=== PATIENT | female | born 1975 | race Caucasian/White ===

== ENCOUNTER 2016-09-12 11:23 | Emergency (ER) | payer OTHER ==
[2016-09-12 11:53] VITALS: BP 129/72
== END 2016-09-12 13:24 | disposition left against medical advice (07) ==
LOC: ED 11:23
DX: R52 Pain, unspecified (principal); Z53.21 Procedure and treatment not carried out due to patient leaving prior to being seen by health care provider

== ENCOUNTER 2016-09-24 06:44 | Emergency (ER) | payer OTHER ==
[2016-09-24 07:05] VITALS: BP 124/82
[2016-09-24] MEDS ORDERED: Amoxicillin/Clavulanate TAB* 875 MG PO ONE (07:25)
--- NOTE | 2016-09-24 07:53 | ED ---
Influenza-Like Illness - HPI Summary HPI Summary: Patient presents with two weeks of worsening sinus pain and pressure. She has been mildly congested with a cough. She was productively blowing her nose up until about 4-5 days ago but now she mainly just has pain over the left cheek. She denies fever, chills, sore throat or SPANN. - History of Current Complaint Chief Complaint: EDGeneral Time Seen by Provider: 09/24/16 07:08 Hx Obtained From: Patient Onset/Duration: Gradual Onset Severity: Severe Associated Signs & Symptoms: Nasal Congestion - Allergy/Home Medications Allergies/Adverse Reactions: Allergies Allergy/AdvReac Type Severity Reaction Status Date / Time Latex Allergy Rash Verified 09/24/16 07:06 Sulfamethoxazole AdvReac Intermediate See Comment Verified 09/24/16 07:06 w/Trimethoprim [From Bactrim] Penicillins [PCN] AdvReac Vomiting Verified 09/24/16 07:06 PMH/Surg Hx/FS Hx/Imm Hx Endocrine/Hematology History: Denies: Hx Diabetes, Hx Thyroid Disease Cardiovascular History: Denies: Hx Congestive Heart Failure, Hx Hypertension, Hx Pacemaker/ICD, Hx Peripheral Vascular Disease Respiratory History: Reports: Hx Asthma Denies: Hx Chronic Obstructive Pulmonary Disease (COPD) GI History: Denies: Hx Ulcer, Other GI Disorders History: Denies: Hx Renal Disease, Other Problems/Disorders Musculoskeletal History: Denies: Hx Arthritis, Hx Osteoporosis Comment Only: Other Musculoskeletal History - GANGLION CYST RIGHT WRIST Sensory History: Denies: Hx Cataracts, Hx Contacts or Glasses, Hx Glaucoma, Hx Hearing Aid Opthamlomology History: Denies: Hx Cataracts, Hx Contacts or Glasses, Hx Glaucoma Neurological History: Reports: Hx Headaches Denies: Hx Seizures, Hx Transient Ischemic Attacks (TIA) Psychiatric History: Denies: Hx Anxiety, Hx Depression, Hx Panic Disorder - Surgical History Surgery Procedure, Year, and Place: HYSTERECTOMY, GALLBLDDER, APPENDECTOMY Infectious Disease History: No Infectious Disease History: Denies: Hx Hepatitis, Hx Human Immunodeficiency Virus (HIV), History Other Infectious Disease, Traveled Outside the [place] in Last 30 Days - Family History Known Family History: Positive: None, Other - FHx of asthma Family History: No FHx of CVA. NO FHX of Cardaic disorders. No FHx of athritis. No FHx of RA. NO FHx of osteoporosis. no FHx of breast CA. no FHx of CA - Social History Occupation: Employed Full-time Lives: With Family Alcohol Use: Occasionally Substance Use Type: Reports: None Hx Tobacco Use: Yes Smoking Status (MU): Light Every Day Tobacco Smoker Type: Cigarettes Amount Used/How Often: 1/4-1/2 ppd Length of Time of Smoking/Using Tobacco: since age 13 Have You Smoked in the Last Year: Yes Cessation Counseling: Patient Advised to Stop Review of Systems Negative: Fever, Chills Positive: Other - left sinus pressure and pain. Negative: Sore Throat, Ear Ache Negative: Chest Pain Positive: Cough - mild. Negative: Shortness Of Breath Negative: Vomiting, Diarrhea, Nausea Negative: Myalgia Negative: Headache All Other Systems Reviewed And Are Negative: Yes Physical Exam Triage Information Reviewed: Yes Vital Signs On Initial Exam: Initial Vitals Temp Pulse Resp BP Pulse Ox 98.3 F 86 16 124/82 100 09/24/16 07:02 09/24/16 07:02 09/24/16 07:02 09/24/16 07:02 09/24/16 07:02 Vital Signs Reviewed: Yes Appearance: Positive: Well-Appearing, No Pain Distress, Well-Nourished Skin: Positive: Warm, Skin Color Reflects Adequate Perfusion, Dry, Soft Head/Face: Positive: Other - TTP left maxillary sinus; non-tender over frontal or right maxillary sinus Eyes: Positive: EOMI, LESLEY, Conjunctiva Clear ENT: Positive: Hearing grossly normal, Pharynx normal, TMs normal Neck: Positive: Supple, Nontender, No Lymphadenopathy Respiratory/Lung Sounds: Positive: Clear to Auscultation, Breath Sounds Present Cardiovascular: Positive: RRR Neurological: Positive: Sensory/Motor Intact, Alert, Oriented to Person Place, Time, NV Bundle Intact Distally Psychiatric: Positive: Affect/Mood Appropriate AVPU Assessment: Alert Diagnostics - Vital Signs Vital Signs Temp Pulse Resp BP Pulse Ox 09/24/16 07:02 98.3 F 86 16 124/82 100 - Laboratory Lab Statement: Any lab studies that have been ordered have been reviewed, and results considered in the medical decision making process. Flu Symptom Course/Dx - Diagnoses Differential Diagnosis/HQI/PQRI: Positive: Bronchitis, Influenza, Pneumonia, RSV , Upper Respiratory Infection Provider Diagnoses: Sinusitis Discharge - Discharge Plan Condition: Stable Disposition: HOME Prescriptions: Amoxicillin/Clavulanate TAB* [Augmentin TAB 875*] 875 mg PO BID #19 tab Patient Education Materials: Sinusitis (ED) Referrals: Wanda eKndall MD [Primary Care Provider] - Additional Instructions: Please take your antibiotics until they are completely gone. Continue using Ibuprofen for pain. You can use over the counter nasal washes as well. Follow- up with your primary care provider if your symptoms persist. Return to the emergency department if your symptoms worsen.
== END 2016-09-24 08:08 | disposition home or self-care (01) ==
LOC: ED 06:44
DX: J32.9 Chronic sinusitis, unspecified (principal); F17.210 Nicotine dependence, cigarettes, uncomplicated; Z88.2 Allergy status to sulfonamides; Z88.0 Allergy status to penicillin
CPT/HCPCS: 99281; A9270-GY

== ENCOUNTER 2016-09-29 10:54 | Emergency (ER) | payer OTHER ==
[2016-09-29 11:06] VITALS: BP 130/76
[2016-09-29] MEDS ORDERED: Ketorolac INJ* 60 MG/2 ML VIAL IM ONE (13:06)
--- NOTE | 2016-09-29 13:19 | RAD ---
HISTORY: Right knee pain COMPARISONS: July 30, 2015 VIEWS: 4, Frontal, lateral, axial, and oblique views of the right knee FINDINGS: BONE DENSITY: Normal. BONES: There is no displaced fracture. JOINTS: There is no arthropathy. There is no suprapatellar joint effusion or lipohemarthrosis. ALIGNMENT: There is no dislocation. SOFT TISSUES: Unremarkable. OTHER FINDINGS: None. IMPRESSION: NO ACUTE OSSEOUS INJURY. IF SYMPTOMS PERSIST, RECOMMEND REPEAT IMAGING.
--- NOTE | 2016-09-29 13:19 | RAD ---
HISTORY: Right ankle pain COMPARISONS: None VIEWS: 3, Frontal, lateral, and oblique views of the right ankle FINDINGS: BONE DENSITY: Normal. BONES: There is no displaced fracture. JOINTS: There is no arthropathy. ALIGNMENT: There is no dislocation. SOFT TISSUES: Unremarkable. OTHER FINDINGS: None. IMPRESSION: NO ACUTE OSSEOUS INJURY. IF SYMPTOMS PERSIST, RECOMMEND REPEAT IMAGING.
--- NOTE | 2016-09-29 14:02 | ED ---
Edwin Steele Billy, scribed for Brian Weber MD on 09/29/16 at 1251 . Lower Extremity - HPI Summary HPI Summary: Patient is a 40 year-old female coming to [facility] presenting with RLE pain after a simple mechanical fall on ice this morning. She states that she was walking to her car when she slipped and fell. She states that pain is worse with ambulation and palpation, but she was able to bear weight after the fall. Severity 6/10. Pain is most significant on the right lateral aspect of the right knee and ankle. She denies any other complaints at this time. - History of Current Complaint Chief Complaint: EDExtremityLower Stated Complaint: FALL RIGHT LEG INJURY Time Seen by Provider: 09/29/16 12:22 Hx Obtained From: Patient Mechanism Of Injury: Fall From A Standing Position Onset of Pain: Hours Severity Initially: Moderate Severity Currently: Moderate Pain Intensity: 6 Pain Scale Used: 0-10 Numeric Timing: Constant Location: Is Discrete @ - RLE Associated Signs And Symptoms: Positive: Negative Aggravating Factor(s): Ambulation Alleviating Factor(s): Nothing Able to Bear Weight: No - Allergies/Home Medications Allergies/Adverse Reactions: Allergies Allergy/AdvReac Type Severity Reaction Status Date / Time Latex Allergy Rash Verified 09/24/16 07:06 Sulfamethoxazole AdvReac Intermediate See Comment Verified 09/24/16 07:06 w/Trimethoprim [From Bactrim] Penicillins [PCN] AdvReac Vomiting Verified 09/24/16 07:06 PMH/Surg Hx/FS Hx/Imm Hx Endocrine/Hematology History: Denies: Hx Diabetes, Hx Thyroid Disease Cardiovascular History: Denies: Hx Congestive Heart Failure, Hx Hypertension, Hx Pacemaker/ICD, Hx Peripheral Vascular Disease Respiratory History: Reports: Hx Asthma Denies: Hx Chronic Obstructive Pulmonary Disease (COPD) GI History: Denies: Hx Ulcer, Other GI Disorders History: Denies: Hx Renal Disease, Other Problems/Disorders Musculoskeletal History: Denies: Hx Arthritis, Hx Osteoporosis Comment Only: Other Musculoskeletal History - GANGLION CYST RIGHT WRIST Sensory History: Denies: Hx Cataracts, Hx Contacts or Glasses, Hx Glaucoma Opthamlomology History: Denies: Hx Cataracts, Hx Contacts or Glasses, Hx Glaucoma Neurological History: Reports: Hx Headaches Denies: Hx Seizures, Hx Transient Ischemic Attacks (TIA) Psychiatric History: Denies: Hx Anxiety, Hx Depression, Hx Panic Disorder - Surgical History Surgery Procedure, Year, and Place: HYSTERECTOMY, GALLBLDDER, APPENDECTOMY Infectious Disease History: No Infectious Disease History: Denies: Hx Hepatitis, Hx Human Immunodeficiency Virus (HIV), History Other Infectious Disease, Traveled Outside the [place] in Last 30 Days - Family History Known Family History: Positive: Respiratory Disease - asthma Family History: No FHx of CVA. NO FHX of Cardaic disorders. No FHx of athritis. No FHx of RA. NO FHx of osteoporosis. no FHx of breast CA. no FHx of CA - Social History Alcohol Use: Occasionally Substance Use Type: Reports: None Hx Tobacco Use: Yes Smoking Status (MU): Light Every Day Tobacco Smoker Type: Cigarettes Amount Used/How Often: 1/4-1/2 ppd Length of Time of Smoking/Using Tobacco: since age 13 Have You Smoked in the Last Year: Yes Review of Systems Negative: Fever Positive: Myalgia All Other Systems Reviewed And Are Negative: Yes Physical Exam - Summary Physical Exam Summary: Vital signs: reviewed General: Patient is comfortable lying in stretcher with no signs of distress HEENT: within normal limits Lungs: CTA B/L CVS: S1 & S2 present. No murmurs appreciated. ABDOMEN: Soft, non-tender. No signs of distention. No rebound no guarding, and no masses palpated. Bowel sounds are normal. EXTREMITIES: Decrease ROM in the right knee and righ ankle. No ecchymosis, hematomas or deformity. NEURO: Alert and oriented x 3. No acute neurological deficits. Speech is normal and follows commands. SKIN: Dry and warm Triage Information Reviewed: Yes Vital Signs On Initial Exam: Initial Vitals Temp Pulse Resp BP Pulse Ox 98.1 F 85 20 130/76 98 09/29/16 11:03 09/29/16 11:03 09/29/16 11:03 09/29/16 11:03 09/29/16 11:03 Vital Signs Reviewed: Yes Diagnostics - Vital Signs Vital Signs Temp Pulse Resp BP Pulse Ox 09/29/16 11:03 98.1 F 85 20 130/76 98 - Laboratory Lab Statement: Any lab studies that have been ordered have been reviewed, and results considered in the medical decision making process. - Radiology Right Ankle Xray Interpretation: No Acute Changes Radiology Interpretation Completed By: Radiologist Right Knee X-ray Xray Interpretation: No Acute Changes Radiology Interpretation Completed By: Radiologist Lower Extremity Course/Dx - Course Assessment/Plan: Patient is a 40 year-old female coming to [facility] presenting with RLE pain after a simple mechanical fall on ice this morning. She states that she was walking to her car when she slipped and fell. She states that pain is worse with ambulation and palpation, but she was able to bear weight after the fall. Severity 6/10. Pain is most significant on the right lateral aspect of the right knee and ankle. She denies any other complaints at this time. Test results: x-rays of the right ankle and right knee show no acute osseous injury. In the ED course, patient was given Toradol IM. The patient was placed in a knee immobilizer and given crutches. The patient will be discharged home to follow up with PCP. She was instructed to return to the ED or follow up with PCP if symptoms persist to rule-out any occult fractures. The patient understands and agrees. She is hemodynamically stable, A&Ox3. - Diagnoses Differential Diagnosis/HQI/PQRI: Positive: Fracture (Closed), Sprain, Strain Provider Diagnoses: Knee contusion, Ankle contusion Discharge - Discharge Plan Condition: Stable Disposition: HOME Patient Education Materials: Knee Sprain (ED), Leg Sprain (ED), Ankle Sprain ( ED) Referrals: Wanda Kendall MD [Primary Care Provider] - The documentation as recorded by the Edwin donahue Billy accurately reflects the service I personally performed and the decisions made by , Brian Weber MD.
== END 2016-09-29 14:40 | disposition home or self-care (01) ==
LOC: ED 10:54
DX: S90.01XA Contusion of right ankle, initial encounter (principal); W00.9XXA Unspecified fall due to ice and snow, initial encounter; Y93.9 Activity, unspecified; Y92.9 Unspecified place or not applicable
CPT/HCPCS: 96372; 99281

== ENCOUNTER 2016-11-07 08:36 | Emergency (ER) | payer OTHER ==
[2016-11-07 08:47] VITALS: BP 127/89
[2016-11-07] MEDS ORDERED: HYDROcodone/ACETAMIN 5-325 MG* 1 TAB PO ONE (09:23)
--- NOTE | 2016-11-07 09:34 | UC ---
Back Pain HPI - HPI Summary HPI Summary: 40 yo female woke up yesterday with LBP has progressed no f/c no UTI symptoms pain increased with position change unable to bend no trauma pain radiates to right buttock - History of Current Complaint Chief Complaint: UCBackPain Stated Complaint: BACK PAIN Time Seen by Provider: 11/07/16 09:12 Hx Obtained From: Patient Onset/Duration: Gradual Onset, Lasting Days Timing: Constant Severity Initially: Moderate Severity Currently: Severe Pain Intensity: 8 Pain Scale Used: 0-10 Numeric Back Pain: Is Diffuse, Radiates To - righ buttock Character: Throbbing, Spasmodic Aggravating: Movement, Lifting, Bending Alleviating: Nothing Associated Signs And Symptoms: Positive: Negative Related History: Similar Episode Dx As - back strain-this is her worse episode - Allergies/Home Medications Allergies/Adverse Reactions: Allergies Allergy/AdvReac Type Severity Reaction Status Date / Time Latex Allergy Rash Verified 11/07/16 08:47 Sulfamethoxazole AdvReac Intermediate See Comment Verified 11/07/16 08:47 w/Trimethoprim [From Bactrim] Penicillins [PCN] AdvReac Vomiting Verified 11/07/16 08:47 Home Medications: Home Medications Multiple Vitamins W/ Minerals [Multivitamin Adults] 11/07/16 [History] PMH/Surg Hx/FS Hx/Imm Hx Previously Healthy: Yes Endocrine History Of: Denies: Diabetes, Thyroid Disease, Hyperthyroidism, Hypothyroidism Cardiovascular History Of: Denies: Cardiac Disorders, Hypertension, Pacemaker/ICD, Congestive Heart Failure Respiratory History Of: Reports: Asthma Denies: COPD GI/ History Of: Denies: Ulcer, Renal Disease Neurological History Of: Denies: TIA, Seizures Psychological History Of: Denies: Anxiety, Depression - Surgical History Surgical History: Yes Surgery Procedure, Year, and Place: HYSTERECTOMY, GALLBLDDER, APPENDECTOMY - Family History Known Family History: Positive: Respiratory Disease - asthma, Other - FHx of asthma Family History: No FHx of CVA. NO FHX of Cardaic disorders. No FHx of athritis. No FHx of RA. NO FHx of osteoporosis. no FHx of breast CA. no FHx of CA - Social History Alcohol Use: Rare Substance Use Type: None Smoking Status (MU): Light Every Day Tobacco Smoker Type: Cigarettes Amount Used/How Often: 1/4-1/2 ppd Length of Time of Smoking/Using Tobacco: since age 13 Have You Smoked in the Last Year: Yes Household Exposure Type: Cigarettes Review of Systems Constitutional: Negative Skin: Negative Eyes: Negative ENT: Negative Respiratory: Negative Cardiovascular: Negative Gastrointestinal: Negative Genitourinary: Negative Motor: Negative Neurovascular: Negative Musculoskeletal: Arthralgia, Myalgia Neurological: Negative Psychological: Negative All Other Systems Reviewed And Are Negative: Yes Physical Exam Triage Information Reviewed: Yes Appearance: Well-Appearing, Well-Nourished, Pain Distress Vital Signs: Initial Vital Signs Temp 99.6 F 11/07/16 08:38 Pulse 85 11/07/16 08:38 Resp 18 11/07/16 08:38 BP 127/89 11/07/16 08:38 Pulse Ox 98 11/07/16 08:38 Vital Signs Reviewed: Yes Eyes: Positive: Conjunctiva Clear ENT: Positive: Hearing grossly normal, Pharynx normal Neck: Positive: Supple, Nontender Respiratory: Positive: Lungs clear, Normal breath sounds, No respiratory distress Cardiovascular: Positive: RRR, No Murmur Abdomen Description: Positive: Nontender. Negative: CVA Tenderness (R), CVA Tenderness (L) Bowel Sounds: Positive: Present Musculoskeletal: Positive: ROM Intact, No Edema Neurological Exam: Other - DTRs equal/symmetrical, strrenght 5/5, slow wide based gait Neurological: Positive: Alert, Other: - (-) SLR Psychological Exam: Normal Skin Exam: Normal Back Pain Course/Dx - Course Course Of Treatment: elevated diastolic felt to be due to severe pain. will see her MD in follow up - Differential Dx/Diagnosis Provider Diagnoses: acute lumbar myofacial strain Discharge - Discharge Plan Condition: Stable Disposition: HOME Prescriptions: Cyclobenzaprine TAB* [Flexeril TAB*] 5 mg PO TID PRN #21 tab PRN Reason: Spasms HYDROcodone/ACETAMIN 5-325 MG* [[place] 5-325 TAB*] 1 tab PO Q4H PRN #15 tab MDD 6 PRN Reason: Pain - Severe Naproxen [Naproxen 500 MG TABS] 500 mg PO BID PRN #30 tab PRN Reason: Pain Patient Education Materials: Low Back Strain (ED) Forms: *Work Release Referrals: Wanda Kendall MD [Primary Care Provider] - 1 Week Additional Instructions: PT consult be sure to see your MD in follow up if not improving or if new symptoms develop Images Front/Back of Body, Lg ([place]): 1 - tender/musle spasm 2 - radiates here
== END 2016-11-07 09:41 | disposition home or self-care (01) ==
LOC: UCEAST 08:36
DX: S39.012A Strain of muscle, fascia and tendon of lower back, initial encounter (principal); X58.XXXA Exposure to other specified factors, initial encounter; Y93.9 Activity, unspecified; Y92.9 Unspecified place or not applicable; Z90.49 Acquired absence of other specified parts of digestive tract; F17.210 Nicotine dependence, cigarettes, uncomplicated
CPT/HCPCS: 99212; G0463

== ENCOUNTER 2016-12-27 07:01 | Emergency (ER) | payer OTHER ==
[2016-12-27 07:15] VITALS: BP 136/78
--- NOTE | 2016-12-27 07:59 | RAD ---
HISTORY: Right hand pain, right fifth digit pain COMPARISONS: April 25, 2009 VIEWS: 5, Frontal, lateral, and oblique views of the fifth digit of the right hand, with frontal and lateral views of the right hand FINDINGS: BONE DENSITY: Normal. BONES: There is no displaced fracture. JOINTS: There is no arthropathy. ALIGNMENT: There is no dislocation. SOFT TISSUES: Unremarkable. OTHER FINDINGS: None. IMPRESSION: NO ACUTE OSSEOUS INJURY. IF SYMPTOMS PERSIST, RECOMMEND REPEAT IMAGING.
--- NOTE | 2017-02-03 23:18 | UC ---
Tyler Steele Salem, scribed for Rosetta Sky MD on 12/27/16 at 0748 . Hand/Wrist HPI - HPI Summary HPI Summary: Patient is a 41 y/o female who presents to the with 6/10 right hand, 5th finger pain for the past week. She is unsure of the cause of injury, but reports that her finger will not strengthen. She states that a couple days ago her 4th and 5th finger felt numb. She denies any rashes or any joint pain anywhere else, but reports mild coughing and wheezing, but pt reports she is trying to quit smoking. She also denies any recent travels. 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 She denies any recent travels. Pt also reports she is being tested for DM. Patients medication reviewed this visit. - History Of Current Complaint Chief Complaint: UCTrauma Stated Complaint: FINGER INJURY Time Seen by Provider: 12/27/16 07:08 Hx Obtained From: Patient ?: No Onset/Duration: Gradual Onset, Lasting Days, Still Present Severity Initially: Moderate Severity Currently: Moderate Pain Intensity: 6 Pain Scale Used: 0-10 Numeric Character Of Pain: Dull Aggravating Factor(s): Extension, Adduction Alleviating: Nothing Associated Signs And Symptoms: Positive: Numbness/Tingling - Allergies/Home Medications Allergies/Adverse Reactions: Allergies Allergy/AdvReac Type Severity Reaction Status Date / Time Latex Allergy Rash Verified 12/27/16 07:07 Sulfamethoxazole AdvReac Intermediate See Comment Verified 12/27/16 07:07 w/Trimethoprim [From Bactrim] Penicillins [PCN] AdvReac Vomiting Verified 12/27/16 07:07 Home Medications: Home Medications Cephalexin 500MG #6 TAB PREPAK 1 cap TID 12/27/16 [History Confirmed 12/27/16] PMH/Surg Hx/FS Hx/Imm Hx Endocrine History Of: Denies: Diabetes, Thyroid Disease, Hyperthyroidism, Hypothyroidism Cardiovascular History Of: Denies: Cardiac Disorders, Hypertension, Pacemaker/ICD, Congestive Heart Failure Respiratory History Of: Reports: Asthma Denies: COPD GI/ History Of: Denies: Ulcer, Renal Disease Neurological History Of: Denies: TIA, Seizures Psychological History Of: Denies: Anxiety, Depression - Surgical History Surgical History: Yes Surgery Procedure, Year, and Place: HYSTERECTOMY, GALLBLDDER, APPENDECTOMY - Family History Known Family History: Positive: Hypertension, Diabetes, Respiratory Disease - asthma, Other - FHx of asthma. No FHx of lupus or RA. Family History: No FHx of CVA. NO FHX of Cardaic disorders. No FHx of athritis. No FHx of RA. NO FHx of osteoporosis. no FHx of breast CA. no FHx of CA - Social History Alcohol Use: Rare Substance Use Type: None Smoking Status (MU): Current Every Day Smoker Type: Cigarettes Amount Used/How Often: 1/2-1 PPD Length of Time of Smoking/Using Tobacco: since age 13 Have You Smoked in the Last Year: Yes Household Exposure Type: Cigarettes Review of Systems Constitutional: Negative Musculoskeletal: Other: - see HPI. All Other Systems Reviewed And Are Negative: Yes Physical Exam Triage Information Reviewed: Yes Appearance: Well-Nourished Vital Signs: Initial Vital Signs Temp 98.3 F 12/27/16 07:08 Pulse 85 12/27/16 07:08 Resp 18 12/27/16 07:08 BP 136/78 12/27/16 07:08 Pulse Ox 96 12/27/16 07:08 Vital Signs Reviewed: Yes Eye Exam: Normal ENT Exam: Normal Neck exam: Normal Respiratory Exam: Normal Respiratory: Positive: Chest non-tender, Lungs clear, Normal breath sounds, No respiratory distress, No accessory muscle use, Other: - Negative: dyspnea or tachypnea. Normal respiratory rate. Cardiovascular Exam: Normal Cardiovascular: Positive: RRR, No Murmur, Pulses Normal - Sitting up., Brisk Capillary Refill Abdominal Exam: Normal Abdomen Description: Positive: Nontender, No Organomegaly, Soft Bowel Sounds: Positive: Present Musculoskeletal: Positive: Strength Intact - Distal sensation to light touch is present x 5 digits 5th finger painful to bend, but without point tara tenderness. Some prox tender to hand, and prox 4th digit. CR < 2 sec x 5 rad ulnar pp 2+, Other: - Distal sensation to light touch is present x 5 digits 5th finger painful to bend, Neurological Exam: Normal - nonfocal, grossly intact Psychological Exam: Normal - conversing easily and appropriately Skin Exam: Normal - no visible or reported rash Diagnostics - Radiology FINGER XR Radiology Interpretation Completed By: Radiologist - IMPRESSION: NO ACUTE OSSEOUS INJURY. IF SYMPTOMS PERSIST, RECOMMEND REPEAT IMAGING. HAND XR Radiology Interpretation Completed By: Radiologist - IMPRESSION: NO ACUTE OSSEOUS INJURY. IF SYMPTOMS PERSIST, RECOMMEND REPEAT IMAGING. Re-Evaluation - Re-Evaluation First Eval Comment: Informed pt of imaging report. Hand/Wrist Course/Dx - Differential Dx/Diagnosis Provider Diagnoses: R fifth finger sprain, in the setting of possible overuse syndrome - Physician Notifications Discussed Patient Care With: Dr. Jones @ [facility]. Discussed care. Pt will follow up Dr. Bianchi today. Discharge - Discharge Plan Condition: Stable Disposition: HOME Prescriptions: predniSONE TAB* [Deltasone TAB*] 10 mg PO DAILY #10 tab Patient Education Materials: Finger Sprain (ED) Forms: *Work Release Referrals: Wanda Kendall MD [Primary Care Provider] - Conrado Bianchi MD [Medical Doctor] - Additional Instructions: Please follow up with your primary care provider per routine. Seek medical attention for worsening problems in the meantime. Follow up with Dr. Bianchi today (orthopedic) Follow up with Dr. Kendall this week if possible. Blood tests ordered, please review with your doctor. The documentation as recorded by the Tyler donahue Salem accurately reflects the service I personally performed and the decisions made by me, Rosetta Sky MD.
== END 2016-12-27 08:25 | disposition home or self-care (01) ==
LOC: UCEAST 07:01
DX: S63.616A Unspecified sprain of right little finger, initial encounter (principal); X50.9XXA Other and unspecified overexertion or strenuous movements or postures, initial encounter; Y92.9 Unspecified place or not applicable; J45.909 Unspecified asthma, uncomplicated; Z90.710 Acquired absence of both cervix and uterus; Z90.49 Acquired absence of other specified parts of digestive tract; Z88.0 Allergy status to penicillin; Z88.2 Allergy status to sulfonamides; Z91.040 Latex allergy status; F17.210 Nicotine dependence, cigarettes, uncomplicated
CPT/HCPCS: 36415; 73140; 85652; 86140; 86431; 99212; G0463

== ENCOUNTER 2017-02-06 10:57 | Emergency (ER) | payer OTHER ==
[2017-02-06 11:47] VITALS: BP 110/82
[2017-02-06] MEDS ORDERED: Albuterol/Ipratropium NEB.SOL* Albuterol 2.5 MG/Ipratropium 0.5 MG 3 ML INH ONE (12:19)
--- NOTE | 2017-02-06 12:24 | RAD ---
INDICATION: Multiple days cough, fever, shortness of breath. Congestion. History of asthma. COMPARISON: January 12, 2013 CT abdomen and February 06, 2009 chest radiograph. TECHNIQUE: Dual energy PA and routine lateral views of the chest were obtained. REPORT: Clear lungs and pleural spaces. Negative for pneumothorax. The heart, pulmonary vasculature, and mediastinal contours are unremarkable. Gallbladder fossa level surgical clips noted. Unremarkable osseous structures and soft tissue contours. IMPRESSION: No evidence for pneumonia. Negative exam.
--- NOTE | 2017-02-06 13:00 | UC ---
Shortness of Breath HPI - HPI Summary HPI Summary: TWO DAYS OF COUGH CONGESTION, CENTRAL CHEST PAIN WITH DEEP BREATHING. HISTORY OF ASTHMA, DAILY SMOKER. NO LEG PAIN. - History of Current Complaint Chief Complaint: UCRespiratory Stated Complaint: FEVER CONGESTION Time Seen by Provider: 02/06/17 12:08 Hx Obtained From: Patient, Family/Aluminum Sheet Cutter Onset/Duration: Gradual Onset, Lasting Days, Worse Since - DAILY Current Severity: Moderate Aggrevating Factors: Deep Breaths Alleviating Factors: Bronchodilators - HAS TRIED WITH NO RELIEF Associated Signs & Symptoms: Positive: Cough (Nonproductive), Wheezing, Chest Pain w/Cough, Chills. Negative: Calf Pain/Swelling, Edema - Risk Factors Pulmonary Embolism: Smoking Cardiac: Smoking Pseudomonas: Negative Tuberculosis: Negative - Allergy/Home Medications Allergies/Adverse Reactions: Allergies Allergy/AdvReac Type Severity Reaction Status Date / Time Latex Allergy Rash Verified 02/06/17 11:37 Sulfamethoxazole AdvReac Intermediate See Comment Verified 02/06/17 11:37 w/Trimethoprim [From Bactrim] Penicillins [PCN] AdvReac Vomiting Verified 02/06/17 11:37 PMH/Surg Hx/FS Hx/Imm Hx Previously Healthy: Yes - Surgical History Surgical History: Yes Surgery Procedure, Year, and Place: HYSTERECTOMY, GALLBLDDER, APPENDECTOMY - Family History Known Family History: Positive: Hypertension, Diabetes, Respiratory Disease - asthma, Other - FHx of asthma. No FHx of lupus or RA. Family History: No FHx of CVA. NO FHX of Cardaic disorders. No FHx of athritis. No FHx of RA. NO FHx of osteoporosis. no FHx of breast CA. no FHx of CA - Social History Occupation: Employed Full-time - [employer] Lives: With Family Alcohol Use: Rare Substance Use Type: None Smoking Status (MU): Current Every Day Smoker Type: Cigarettes Amount Used/How Often: 1/2-1 PPD Length of Time of Smoking/Using Tobacco: since age 13 Have You Smoked in the Last Year: Yes Household Exposure Type: Cigarettes - Immunization History Most Recent Influenza Vaccination: unknown Most Recent Tetanus Shot: up to date Review of Systems Constitutional: Fatigue Skin: Negative Eyes: Negative ENT: Negative Respiratory: Cough Cardiovascular: Negative Gastrointestinal: Negative Genitourinary: Negative Motor: Negative Neurovascular: Negative Musculoskeletal: Negative Neurological: Negative Psychological: Negative All Other Systems Reviewed And Are Negative: Yes Physical Exam Triage Information Reviewed: Yes Appearance: No Pain Distress, Well-Nourished, Ill-Appearing Vital Signs: Initial Vital Signs Temp 98.4 F 02/06/17 11:40 Pulse 86 02/06/17 11:40 Resp 20 02/06/17 11:40 BP 110/82 02/06/17 11:40 Pulse Ox 97 02/06/17 11:40 Vital Signs Reviewed: Yes Eye Exam: Normal ENT Exam: Normal ENT: Positive: Hearing grossly normal, Pharynx normal, TM bulging Dental Exam: Normal Neck exam: Normal Neck: Positive: Supple, Nontender, No Lymphadenopathy Respiratory: Positive: No respiratory distress, No accessory muscle use, Wheezing Cardiovascular Exam: Normal Cardiovascular: Positive: RRR, No Murmur, Pulses Normal Abdominal Exam: Normal Musculoskeletal Exam: Normal Musculoskeletal: Positive: Strength Intact, ROM Intact, No Edema Neurological Exam: Normal Psychological Exam: Normal Psychological: Positive: Normal Response To Family Skin Exam: Normal Shortness of Breath Dx - Course Course Of Treatment: PATINET TO ED BY PRIVATE CAR (REFUSED AMBULANCE) FOR CONTINUED EVALUATION - Differential Dx/Diagnosis Differential Diagnosis/HQI/PQRI: Asthma, Chest Wall Pain, [place], Pneumonia, Pulmonary Embolism, Other - BRONCHITIS WITH BRONCHOSPASM; SINUSITIS Provider Diagnoses: DYSPNEA - Physician Notification/Consults Discussed Patient Care With: Whit Brock Time Discussed With Above Provider: 12:35 Instructed by Provider To: MD Will See In ED Discharge - Discharge Plan Condition: Stable Disposition: TRANS HIGHER LVL OF CARE FAC
== END 2017-02-06 12:50 | disposition short-term general hospital (02) ==
LOC: UCEAST 10:57
DX: R06.00 Dyspnea, unspecified (principal); F17.210 Nicotine dependence, cigarettes, uncomplicated; Z88.0 Allergy status to penicillin; Z88.2 Allergy status to sulfonamides
CPT/HCPCS: 71020; 93005; 99212; A9270-GY; G0463

== ENCOUNTER 2017-02-06 13:09 | Emergency (ER) | payer OTHER ==
[2017-02-06 14:29] LABS: Hematocrit 44 % (35-47); Hemoglobin 14.9 g/dl (12.0-16.0); Mean Corpuscular HGB Conc 34 g/dl (31-36); Mean Corpuscular Hemoglobin 31 pg (27-31); Mean Corpuscular Volume 93 fL (80-97); Mean Platelet Volume 9 um3 (7.4-10.4); Red Blood Count 4.73 10^6/ul (4.0-5.4); Red Cell Distribution Width 13 % (10.5-15); White Blood Count 13.5 10^3/ul (3.5-10.8)
[2017-02-06 14:38] LABS: Albumin 4.1 g/dL (3.2-5.2); BUN/Creatinine Ratio 14.5 (8-20); Calcium 9.1 mg/dL (8.6-10.3); EGFR African American 121.8 (>60); EGFR Non-African American 94.7 (>60); Potassium 3.8 mmol/L (3.5-5.0); Total Protein 7.1 g/dL (6.4-8.9)
[2017-02-06] MEDS ORDERED: methylPREDNISolone 125 MG* 2 ML VIAL IV ONE (15:26)
[2017-02-06] MEDS ORDERED: Albuterol/Ipratropium NEB.SOL* Albuterol 2.5 MG/Ipratropium 0.5 MG 3 ML INH SCH (16:00)
[2017-02-06 18:21] VITALS: BP 123/71
--- NOTE | 2017-02-06 18:41 | ED ---
Corona Steele Thomas, scribed for Brian Weber MD on 02/06/17 at 1511 . Shortness of Breath - HPI Summary HPI Summary: The pt is a 41 y/o F with a Hx of asthma presenting to the ED c/o a dry cough that began two days ago. Per triage she was referred from urgent care for a URI , where she had a CXR and EKG that were negative for dz. Her pain is a 6/10, per triage. Additionally c/o a fever. The pt denies N/V, CP, and any urinary symptoms. SHx: tobacco use, rare alcohol use. - History of Current Complaint Chief Complaint: EDGeneral Time Seen by Provider: 02/06/17 14:55 Hx Obtained From: Patient Onset/Duration: Lasting Days - two days ago, Still Present Current Severity: Moderate Aggrevating Factors: Nothing Alleviating Factors: Nothing Associated Signs & Symptoms: Cough (Nonproductive), Fever - Allergy/Home Medications Allergies/Adverse Reactions: Allergies Allergy/AdvReac Type Severity Reaction Status Date / Time Bupropion [From Wellbutrin] Allergy Rash Verified 02/06/17 13:15 Latex Allergy Rash Verified 02/06/17 11:37 Sulfamethoxazole AdvReac Intermediate See Comment Verified 02/06/17 11:37 w/Trimethoprim [From Bactrim] Penicillins [PCN] AdvReac Vomiting Verified 02/06/17 11:37 PMH/Surg Hx/FS Hx/Imm Hx Previously Healthy: No Endocrine/Hematology History: Denies: Hx Diabetes, Hx Thyroid Disease Cardiovascular History: Denies: Hx Congestive Heart Failure, Hx Hypertension, Hx Pacemaker/ICD, Hx Peripheral Vascular Disease Respiratory History: Reports: Hx Asthma - as needed meds Denies: Hx Chronic Obstructive Pulmonary Disease (COPD) GI History: Denies: Hx Ulcer, Other GI Disorders History: Denies: Hx Renal Disease, Other Problems/Disorders Musculoskeletal History: Denies: Hx Arthritis, Hx Osteoporosis Comment Only: Other Musculoskeletal History - GANGLION CYST RIGHT WRIST Sensory History: Denies: Hx Cataracts, Hx Contacts or Glasses, Hx Glaucoma Opthamlomology History: Denies: Hx Cataracts, Hx Contacts or Glasses, Hx Glaucoma Neurological History: Reports: Hx Headaches Denies: Hx Seizures, Hx Transient Ischemic Attacks (TIA) Psychiatric History: Denies: Hx Anxiety, Hx Depression, Hx Panic Disorder - Surgical History Surgery Procedure, Year, and Place: HYSTERECTOMY, GALLBLDDER, APPENDECTOMY Infectious Disease History: Yes Infectious Disease History: Denies: Hx Clostridium Difficile, Hx Hepatitis, Hx Human Immunodeficiency Virus (HIV), Hx of Known/Suspected MRSA, Hx Shingles, Hx Tuberculosis, Hx Known/ Suspected VRE, Hx Known/Suspected VRSA, History Other Infectious Disease, Traveled Outside the [place] in Last 30 Days - Family History Known Family History: Positive: Hypertension, Diabetes, Respiratory Disease - asthma, Other - FHx of asthma. No FHx of lupus or RA. Family History: No FHx of CVA. NO FHX of Cardaic disorders. No FHx of athritis. No FHx of RA. NO FHx of osteoporosis. no FHx of breast CA. no FHx of CA - Social History Alcohol Use: Rare Substance Use Type: Reports: None Hx Tobacco Use: Yes Smoking Status (MU): Current Every Day Smoker Type: Cigarettes Amount Used/How Often: 1/2-1 PPD Length of Time of Smoking/Using Tobacco: since age 13 Have You Smoked in the Last Year: Yes Review of Systems Positive: Fever Eyes: Negative ENT: Negative Cardiovascular: Negative Negative: Chest Pain Positive: Cough - dry Gastrointestinal: Negative Negative: Vomiting, Nausea Genitourinary: Negative Musculoskeletal: Negative Skin: Negative Neurological: Negative Psychological: Normal All Other Systems Reviewed And Are Negative: Yes Physical Exam - Summary Physical Exam Summary: VITAL SIGNS: Reviewed. GENERAL: ~Patient is a well-developed and nourished female who is lying comfortable in the stretcher. ~Patient is not in any acute respiratory distress. HEAD AND FACE: No signs of trauma. ~No ecchymosis, hematomas or skull depressions. No sinus tenderness. EYES: PERRLA, EOMI x 2, No injected conjunctiva, no nystagmus. EARS: Hearing grossly intact. Ear canals and tympanic membranes are within normal limits. MOUTH: Oropharynx within normal limits. NECK: Supple, trachea is midline, no adenopathy, no JVD, no carotid bruit, no c- spine tenderness, neck with full ROM. CHEST: Symmetric, no tenderness at palpation LUNGS: Wheezing. Clear to auscultation bilaterally. No crackles. CVS: Regular rate and rhythm, S1 and S2 present, no murmurs or gallops appreciated. ABDOMEN: Soft, non-tender. No signs of distention. No rebound no guarding, and no masses palpated. Bowel sounds are normal. EXTREMITIES: FROM in all major joints, no edema, no cyanosis or clubbing. NEURO: Alert and oriented x 3. No acute neurological deficits. Speech is normal and follows commands. SKIN: Dry and warm Triage Information Reviewed: Yes Vital Signs On Initial Exam: Initial Vitals Temp Pulse Resp BP Pulse Ox 97.4 F 88 20 129/89 100 02/06/17 13:11 02/06/17 13:11 02/06/17 13:11 02/06/17 13:11 02/06/17 13:11 Vital Signs Reviewed: Yes - Miguel A Coma Scale Coma Scale Total: 15 Diagnostics - Vital Signs Vital Signs Temp Pulse Resp BP Pulse Ox 02/06/17 14:37 81 13 97 02/06/17 14:36 98.7 F 79 18 137/93 99 02/06/17 14:34 137/93 02/06/17 13:11 97.4 F 88 20 129/89 100 - Laboratory Lab Results: Lab Results 02/06/17 02/06/17 Range/Units 13:55 13:55 WBC 13.5 H (3.5-10.8) 10^3/ul RBC 4.73 (4.0-5.4) 10^6/ul Hgb 14.9 (12.0-16.0) g/dl Hct 44 (35-47) % MCV 93 (80-97) fL MCH 31 (27-31) pg MCHC 34 (31-36) g/dl RDW 13 (10.5-15) % Plt Count 246 (150-450) 10^3/ul MPV 9 (7.4-10.4) um3 Neut % (Auto) 66.5 (38-83) % Lymph % (Auto) 26.4 (25-47) % [place] % (Auto) 5.6 (1-9) % Eos % (Auto) 0.8 (0-6) % Baso % (Auto) 0.7 (0-2) % Absolute Neuts (auto) 8.9 H (1.5-7.7) 10^3/ul Absolute Lymphs (auto) 3.6 (1.0-4.8) 10^3/ul Absolute Monos (auto) 0.8 (0-0.8) 10^3/ul Absolute Eos (auto) 0.1 (0-0.6) 10^3/ul Absolute Basos (auto) 0.1 (0-0.2) 10^3/ul Absolute Nucleated RBC 0.01 10^3/ul Nucleated RBC % 0 Sodium 132 L (133-145) mmol/L Potassium 3.8 (3.5-5.0) mmol/L Chloride 105 (101-111) mmol/L Carbon Dioxide 24 (22-32) mmol/L Anion Gap 3 (2-11) mmol/L BUN 10 (6-24) mg/dL Creatinine 0.69 (0.51-0.95) mg/dL Est GFR ( Amer) 121.8 (>60) Est GFR (Non-Af Amer) 94.7 (>60) BUN/Creatinine Ratio 14.5 (8-20) Glucose 125 H (70-100) mg/dL Calcium 9.1 (8.6-10.3) mg/dL Total Bilirubin 1.00 (0.2-1.0) mg/dL AST 19 (13-39) U/L ALT 20 (7-52) U/L Alkaline Phosphatase 55 (34-104) U/L Total Protein 7.1 (6.4-8.9) g/dL Albumin 4.1 (3.2-5.2) g/dL Globulin 3.0 (2-4) g/dL Albumin/Globulin Ratio 1.4 (1-3) Result Diagrams: 02/06/17 13:55 02/06/17 13:55 Lab Statement: Any lab studies that have been ordered have been reviewed, and results considered in the medical decision making process. Course/Dx - Course Assessment/Plan: The pt is a 41 y/o F with a Hx of asthma presenting to the ED c /o a dry cough that began two days ago. Per triage she was referred from urgent care for a URI, where she had a CXR and EKG that were negative for dz. Her pain is a 6/10, per triage. Additionally c/o a fever. The pt denies N/V, CP, and any urinary symptoms. SHx: tobacco use, rare alcohol use. In the ED course an IV access was obtained. Patient was placed in a cardiac cath technologist. Patient was started with IV fluids. She is wheezing therefore she was started with solumedrol and Duonebs. Labs within normal limits except for WBCs of 13.5 w/o bands. Na 132, and Glucose of 125. EKG shows a NSR at w/o ST elevations. CXR impression: No acute pathology. She reports that she was send from the [facility] to do a chest CT to R/O PE. However the patient is not hypoxic and she is not tachycardic therefore I have a low suspicion for a PE. I also performed a D Dimer and it is negative. By the Wells criteria she is a low risk for a PE. After medications she is saturating at 96 to 98 at room air. She reports she is feeling better. She was given already a Rx for azithromycin for sinusitis. I believe her symptoms are secondary to her Asthma Exacerbation. I discussed all the findings and test results with the patient and patients parents. They were instructed to return to the emergency room immediately if any of the symptoms return or worsens. They understand and agree. Plan of care was discussed with the patient and patients parents they understands and agrees. All questions were answered at patient satisfaction. There were no further complaints or concerns. Lung exam before discharge: CTA B/L. Good air exchange. No wheezing or crackles heard. CVS: S1 and S2 present. No murmurs appreciated. Patient is alert and oriented x 3. Patient is hemodynamically stable. Patient will be discharged home with follow up director peoplesoft in the next 2-3 days - Diagnoses Differential Diagnosis/HQI/PQRI: Positive: Asthma, Bronchitis, CHF, Chest Wall Pain, Pneumonia Provider Diagnoses: Asthma exacerbation, Acute sinusitis Discharge - Discharge Plan Condition: Stable Disposition: HOME Prescriptions: predniSONE TAB* [Deltasone TAB*] 40 mg PO DAILY #8 tab Patient Education Materials: Asthma (ED), Sinusitis (ED), Prednisone (By mouth) Forms: *Work Release Referrals: Wanda Kendall MD [Primary Care Provider] - 3 Days The documentation as recorded by the Corona donahue Thomas accurately reflects the service I personally performed and the decisions made by me, Brian Weber MD.
== END 2017-02-06 18:23 | disposition home or self-care (01) ==
LOC: ED 13:09
DX: J45.901 Unspecified asthma with (acute) exacerbation (principal); J01.90 Acute sinusitis, unspecified; R05 Cough; R50.9 Fever, unspecified
CPT/HCPCS: 36415; 80053; 85025; 85379; 94640; 94760; 96374; 99283; A9270-GY; J2930

== ENCOUNTER 2017-07-04 00:14 | Emergency (ER) | payer MEDICAID ==
[2017-07-04 00:18] VITALS: BP 127/83
[2017-07-04] MEDS ORDERED: Azithromycin TAB* 250 MG PO ONE (01:01)
[2017-07-04] MEDS ORDERED: Albuterol HFA INHALER* 8 gm MDI INH ONE (01:02)
--- NOTE | 2017-07-04 01:48 | ED ---
Ajay Steele Nikita, scribed for Raul Rivera MD on 07/04/17 at 0027 . Complex/Multi-Sys Presentation - HPI Summary HPI Summary: This patient is a 41 year old F presenting to ED with a chief complaint of multiple symptoms since 4 days ago. The patient rates the pain 6/10 in severity. Symptoms aggravated by nothing. Symptoms alleviated by nothing (pt took Robitussin with no relief). Patient reports wheezing, sinus congestion, rhinorrhea, sore throat, non-productive cough (intermittent), SPANN, and sore/ scratchy throat. Patient denies ear pain, muscle aches, and appetite changes. Daughter has a sinus infection. - History Of Current Complaint Chief Complaint: EDUpperRespComplaint Time Seen by Provider: 07/04/17 00:24 Hx Obtained From: Patient Onset/Duration: Sudden Onset, Lasting Days, Still Present Timing: Constant, Intermittent, Lasting:, Days Severity Currently: Moderate Severity Initially: Moderate Aggravating Factor(s): nothing Alleviating Factor(s): nothing (pt took Robitussin with no relief) Associated Signs And Symptoms: Positive: Other - Patient reports wheezing, sinus congestion, rhinorrhea, sore throat, non-productive cough (intermittent), SPANN, and sore/scratchy throat. Patient denies ear pain, muscle aches, and appetite changes. - Allergies/Home Medications Allergies/Adverse Reactions: Allergies Allergy/AdvReac Type Severity Reaction Status Date / Time Bupropion [From Wellbutrin] Allergy Rash Verified 07/04/17 00:19 Latex Allergy Rash Verified 07/04/17 00:19 Sulfamethoxazole AdvReac Intermediate See Comment Verified 07/04/17 00:19 w/Trimethoprim [From Bactrim] Penicillins [PCN] AdvReac Vomiting Verified 07/04/17 00:19 PMH/Surg Hx/FS Hx/Imm Hx Endocrine/Hematology History: Denies: Hx Diabetes, Hx Thyroid Disease Cardiovascular History: Denies: Hx Congestive Heart Failure, Hx Hypertension, Hx Pacemaker/ICD, Hx Peripheral Vascular Disease Respiratory History: Reports: Hx Asthma - as needed meds Denies: Hx Chronic Obstructive Pulmonary Disease (COPD) GI History: Denies: Hx Ulcer, Other GI Disorders History: Denies: Hx Renal Disease, Other Problems/Disorders Musculoskeletal History: Denies: Hx Arthritis, Hx Osteoporosis Comment Only: Other Musculoskeletal History - GANGLION CYST RIGHT WRIST Sensory History: Denies: Hx Cataracts, Hx Contacts or Glasses, Hx Glaucoma Opthamlomology History: Denies: Hx Cataracts, Hx Contacts or Glasses, Hx Glaucoma Neurological History: Reports: Hx Headaches Denies: Hx Seizures, Hx Transient Ischemic Attacks (TIA) Psychiatric History: Denies: Hx Anxiety, Hx Depression, Hx Panic Disorder - Surgical History Surgery Procedure, Year, and Place: HYSTERECTOMY, GALLBLDDER, APPENDECTOMY Infectious Disease History: No Infectious Disease History: Denies: Hx Clostridium Difficile, Hx Hepatitis, Hx Human Immunodeficiency Virus (HIV), Hx of Known/Suspected MRSA, Hx Shingles, Hx Tuberculosis, Hx Known/ Suspected VRE, Hx Known/Suspected VRSA, History Other Infectious Disease, Traveled Outside the [place] in Last 30 Days - Family History Known Family History: Positive: Hypertension, Diabetes, Respiratory Disease - asthma, Other - FHx of asthma. No FHx of lupus or RA. Family History: No FHx of CVA. NO FHX of Cardaic disorders. No FHx of athritis. No FHx of RA. NO FHx of osteoporosis. no FHx of breast CA. no FHx of CA - Social History Alcohol Use: Rare Substance Use Type: Reports: None Hx Tobacco Use: Yes Smoking Status (MU): Current Every Day Smoker Type: Cigarettes Amount Used/How Often: 1/2-1 PPD Length of Time of Smoking/Using Tobacco: since age 13 Have You Smoked in the Last Year: Yes Review of Systems Positive: Sore Throat - scratchy, Other - sinus congestion, rhinorrhea. Negative: Ear Ache Positive: Cough - intermittent, non-productive, Other - wheezing Positive: Other - denies appetite changes Positive: Other - denies muscle aches Positive: Headache All Other Systems Reviewed And Are Negative: Yes Physical Exam Triage Information Reviewed: Yes Vital Signs On Initial Exam: Initial Vitals Temp Pulse Resp BP Pulse Ox 97.1 F 88 18 127/83 98 07/04/17 00:16 07/04/17 00:16 07/04/17 00:16 07/04/17 00:16 07/04/17 00:16 Vital Signs Reviewed: Yes Appearance: Positive: Well-Appearing, No Pain Distress Skin: Positive: Warm, Skin Color Reflects Adequate Perfusion, Dry Head/Face: Positive: Normal Head/Face Inspection Eyes: Positive: EOMI, LESLEY ENT: Positive: Normal ENT inspection, TMs normal, Other - positive rhinorrhea Neck: Positive: Supple, Nontender Respiratory/Lung Sounds: Positive: Breath Sounds Present, Other - no respiratory distress, transmitted upper respiratory sounds in lungs Cardiovascular: Positive: RRR Abdomen Description: Positive: Nontender, Soft Bowel Sounds: Positive: Present Musculoskeletal: Positive: Normal, Strength/ROM Intact Neurological: Positive: Normal, Sensory/Motor Intact, Alert, Oriented to Person Place, Time Psychiatric: Positive: Affect/Mood Appropriate Diagnostics - Vital Signs Vital Signs Temp Pulse Resp BP Pulse Ox 07/04/17 00:16 97.1 F 88 18 127/83 98 - Laboratory Lab Statement: Any lab studies that have been ordered have been reviewed, and results considered in the medical decision making process. Complex Multi-Symp Course/Dx Assessment/Plan: This patient is a 41 year old F presenting to ED with a chief complaint of multiple symptoms since 4 days ago. The patient rates the pain 6/ 10 in severity. Symptoms aggravated by nothing. Symptoms alleviated by nothing ( pt took Robitussin with no relief). Patient reports wheezing, sinus congestion, sore throat, non-productive cough (intermittent), SPANN, and sore/scratchy throat. Patient denies ear pain, muscle aches, and appetite changes. BP noted and advised to follow up with PCP. Medications reviewed. Allergies noted. Pt will be discharged. Pt is agreeable with this plan. - Diagnoses Provider Diagnoses: Bronchitis with bronchospasm Discharge - Discharge Plan Condition: Stable Disposition: HOME Prescriptions: Azithromycin TAB* [Zithromax TAB (Z-RAYSA) 250 mg #6 tabs] 250 mg PO DAILY #4 tab Patient Education Materials: Acute Bronchitis (ED), Bronchospasm (ED) Forms: *Work Release Referrals: Wanda Kendall MD [Primary Care Provider] - Additional Instructions: FOLLOW UP WITH YOUR DOCTOR. RETURN TO THE EMERGENCY DEPARTMENT FOR ANY WORSENING OF YOUR CONDITION OR QUESTIONS OR CONCERNS. The documentation as recorded by the Ajay donahue Nikita accurately reflects the service I personally performed and the decisions made by me, Raul Rivera MD.
== END 2017-07-04 01:12 | disposition home or self-care (01) ==
LOC: ED 00:14
DX: J40 Bronchitis, not specified as acute or chronic (principal); R51 Headache
CPT/HCPCS: 99282; A9270-GY

== ENCOUNTER 2017-09-16 12:56 | Emergency (ER) | payer MEDICAID, OTHER ==
[2017-09-16 13:15] VITALS: BP 119/80
--- NOTE | 2017-09-16 14:03 | RAD ---
HISTORY: Left foot and ankle pain and swelling COMPARISONS: None VIEWS: 6, Frontal, lateral, and oblique views of the left foot and ankle FINDINGS: BONE DENSITY: Normal. BONES: There is no displaced fracture. JOINTS: There is no arthropathy. ALIGNMENT: There is no dislocation. SOFT TISSUES: Unremarkable. OTHER FINDINGS: None. IMPRESSION: NO ACUTE OSSEOUS INJURY OF THE LEFT FOOT AND ANKLE. IF SYMPTOMS PERSIST, RECOMMEND REPEAT IMAGING.
--- NOTE | 2017-09-16 15:02 | UC ---
Yoon Steele Nilda, scribed for Julita Chauhan DO on 09/16/17 at 1446 . Lower Extremity/Ankle HPI - HPI Summary HPI Summary: This patient is a 41 year old F presenting to [facility] accompanied by daughter with a chief complaint of pain in left foot (ankle to in-step) since yesterday. Pt states she stepped out of her car yesterday and felt the pain. The patient rates the stabbing pain 7/10 in severity with movement. The throbbing pain is rated 4/10 when seated. Symptoms aggravated by weight bearing and movement, but alleviated by rest. Patient reports she can ambulate but denies known injury. - History of Current Complaint Chief Complaint: UCLowerExtremity Stated Complaint: FOOT INJURY Time Seen by Provider: 09/16/17 13:29 Hx Obtained From: Patient Onset/Duration: Sudden Onset, Lasting Days, Still Present Severity Currently: Severe Pain Intensity: 7 Pain Scale Used: 0-10 Numeric Aggravating Factor(s): Other - weight bearing and movement Alleviating Factor(s): Rest Able to Bear Weight: No - Allergies/Home Medications Allergies/Adverse Reactions: Allergies Allergy/AdvReac Type Severity Reaction Status Date / Time Bupropion [From Wellbutrin] Allergy Rash Verified 09/16/17 13:15 Latex Allergy Rash Verified 09/16/17 13:15 Sulfamethoxazole AdvReac Intermediate See Comment Verified 09/16/17 13:15 w/Trimethoprim [From Bactrim] Penicillins [PCN] AdvReac Vomiting Verified 09/16/17 13:15 Home Medications: Home Medications Acetaminophen [APAP] 1,000 mg PO 09/16/17 [History] Ibuprofen [Advil] 400 mg PO 09/16/17 [History] PMH/Surg Hx/FS Hx/Imm Hx Respiratory History: Asthma - Surgical History Surgical History: Yes Surgery Procedure, Year, and Place: HYSTERECTOMY, GALLBLDDER, APPENDECTOMY - Family History Known Family History: Positive: Hypertension, Diabetes, Respiratory Disease - asthma, Other - FHx of asthma. No FHx of lupus or RA. Family History: No FHx of CVA. NO FHX of Cardaic disorders. No FHx of athritis. No FHx of RA. NO FHx of osteoporosis. no FHx of breast CA. no FHx of CA - Social History Alcohol Use: Rare Substance Use Type: None Smoking Status (MU): Heavy Every Day Tobacco Smoker Type: Cigarettes Amount Used/How Often: 1/2-1 PPD Length of Time of Smoking/Using Tobacco: since age 13 Have You Smoked in the Last Year: Yes Household Exposure Type: Cigarettes - Immunization History Most Recent Influenza Vaccination: unknown Most Recent Tetanus Shot: up to date Review of Systems Respiratory: Negative Musculoskeletal: Other: - left foot pain with ambulation; negative known injury All Other Systems Reviewed And Are Negative: Yes Physical Exam Triage Information Reviewed: Yes Vital Signs: Initial Vital Signs Temp 97.6 F 09/16/17 13:11 Pulse 92 09/16/17 13:11 Resp 18 09/16/17 13:11 BP 119/80 09/16/17 13:11 Pulse Ox 98 09/16/17 13:11 Vital Signs Reviewed: Yes - Additional Comments Appearance: Well-Appearing, No Pain Distress, Well-Nourished Eyes: conjunctiva clear, no discharge ENT: Hearing grossly normal, no muffled/hoarse voice. Neck: Normal, Supple Respiratory/Lung Sounds: Lungs clear, Normal breath sounds, No respiratory distress, No accessory muscle use Cardiovascular: RRR, No murmur Abdomen: Nontender, Soft, no guarding, not distended Bowel Sounds: Present Musculoskeletal: tenderness over medial lateral malleolus, 1st metatarsal, tailor dome, distal tibia and fibia Neurological: Alert, muscle tone normal Psychiatric:Normal, age appropriate behavior Skin: Normal, Warm, Dry, Normal color Diagnostics - Radiology Foot XR Radiology Interpretation Completed By: Radiologist - Foot XR, per radiologist, no acute osseous injury of the left foot and ankle. If symptoms persist, recommend repeat imaging. Dr. Chauhan has reviewed this report. Ankle XR Radiology Interpretation Completed By: Radiologist - Ankle XR, per radiologist, no acute osseous injury of the left foot and ankle. If symptoms persist, recommend repeat imaging. Dr. Chauhan has reviewed this report. Lower Extremity Course/Dx - Course Course Of Treatment: This patient is a 41 year old F presenting to [facility] accompanied by daughter with a chief complaint of pain in left foot (ankle to in -step) since yesterday. Pt states she stepped out of her car yesterday and felt the pain. The patient rates the stabbing pain 7/10 in severity with movement. The throbbing pain is rated 4/10 when seated. Symptoms aggravated by weight bearing and movement, but alleviated by rest. Patient reports she can ambulate but denies known injury. Foot XR, per radiologist, no acute osseous injury of the left foot and ankle. If symptoms persist, recommend repeat imaging. Ankle XR, per radiologist, no acute osseous injury of the left foot and ankle. If symptoms persist, recommend repeat imaging. Dr. Chauhan has reviewed these reports. Patient will be discharged and follow up from PCP. The patient is agreeable with this plan. Medications reviewed. Allergies reviewed. Pt is Dx with foot sprain. - Differential Dx/Diagnosis Provider Diagnoses: foot sprain Discharge - Discharge Plan Condition: Stable Disposition: HOME Patient Education Materials: Foot Sprain (ED), Flatfoot (DC) Forms: *Work Release Referrals: Wanda Kendall MD [Primary Care Provider] - Cecile Velazco DPM [Doctor of Podiatric Medicine] - (follow up in 3-5 days ) The documentation as recorded by the Yoon donahue Nilda accurately reflects the service I personally performed and the decisions made by Tien wesley Michelle A, DO.
== END 2017-09-16 15:08 | disposition home or self-care (01) ==
LOC: UCEAST 12:56
DX: S93.602A Unspecified sprain of left foot, initial encounter (principal); X58.XXXA Exposure to other specified factors, initial encounter; Y92.9 Unspecified place or not applicable; Z88.0 Allergy status to penicillin; Z88.3 Allergy status to other anti-infective agents; Z91.040 Latex allergy status; J45.909 Unspecified asthma, uncomplicated; Z90.710 Acquired absence of both cervix and uterus; Z90.49 Acquired absence of other specified parts of digestive tract; F17.210 Nicotine dependence, cigarettes, uncomplicated
CPT/HCPCS: 99213; G0463

== ENCOUNTER → 2017-10-02 08:32 | Emergency (ER) | payer OTHER ==
[~2017-10-02 08:32] MED LIST: Morphine INJ* 4 MG/ML 1 ML CARPUJECT IV ONE; Ondansetron INJ* 2 MG/ML VIAL IV ONE
--- NOTE | 2017-10-02 09:35 | RAD ---
HISTORY: Left ankle and foot pain, subacute trauma COMPARISONS: September 16, 2017 VIEWS: 6, Frontal, lateral, and oblique views of the left ankle and foot FINDINGS: BONE DENSITY: Normal. BONES: There is no displaced fracture. JOINTS: There is no arthropathy. ALIGNMENT: There is no dislocation. SOFT TISSUES: Unremarkable. OTHER FINDINGS: None. IMPRESSION: NO ACUTE OSSEOUS INJURY TO THE LEFT ANKLE OR FOOT. IF SYMPTOMS PERSIST, RECOMMEND REPEAT IMAGING.
[2017-10-02 09:54] VITALS: BP 121/83
--- NOTE | 2017-10-02 18:58 | ED ---
Jovany Steele Angela, scribed for Brian Weber MD on 10/02/17 at 0858 . Lower Extremity - HPI Summary HPI Summary: This pt is a 41 y/o female presenting to [facility] c/o left foot pain x3 weeks. Pt reports she injured her foot 3 weeks ago after slipping on ice and falling. Denies head strike or LOC. Pt notes her foots is painful to touch. She is able to bear weight with this left foot. PSHx: hysterectomy, appendectomy, cholecystectomy. Pt is a current smoker ( smokes 1 pack every 3 days). - History of Current Complaint Stated Complaint: LT FOOT PAIN Time Seen by Provider: 10/02/17 08:33 Hx Obtained From: Patient Mechanism Of Injury: Fall From A Standing Position Onset of Pain: Immediate Onset/Duration: Still Present Severity Currently: Severe Pain Intensity: 8 Pain Scale Used: 0-10 Numeric Timing: Constant Location: Is Discrete @ - left foot Associated Signs And Symptoms: Positive: Negative Aggravating Factor(s): Other - touch, palpation Alleviating Factor(s): Nothing Able to Bear Weight: Yes - Allergies/Home Medications Allergies/Adverse Reactions: Allergies Allergy/AdvReac Type Severity Reaction Status Date / Time MS Bupropion Allergy Rash Verified 09/16/17 13:15 [From Wellbutrin] MS Latex [Latex] Allergy Rash Verified 09/16/17 13:15 MS Sulfamethoxazole AdvReac Intermediate See Comment Verified 09/16/17 13:15 w/Trimethoprim [From Bactrim] MS Penicillins [PCN] AdvReac Vomiting Verified 09/16/17 13:15 PMH/Surg Hx/FS Hx/Imm Hx Endocrine/Hematology History: Denies: Hx Diabetes, Hx Thyroid Disease Cardiovascular History: Denies: Hx Congestive Heart Failure, Hx Hypertension, Hx Pacemaker/ICD, Hx Peripheral Vascular Disease Respiratory History: Reports: Hx Asthma - as needed meds Denies: Hx Chronic Obstructive Pulmonary Disease (COPD) GI History: Denies: Hx Ulcer, Other GI Disorders History: Denies: Hx Renal Disease, Other Problems/Disorders Musculoskeletal History: Denies: Hx Arthritis, Hx Osteoporosis Comment Only: Other Musculoskeletal History - GANGLION CYST RIGHT WRIST Sensory History: Denies: Hx Cataracts, Hx Contacts or Glasses, Hx Glaucoma Opthamlomology History: Denies: Hx Cataracts, Hx Contacts or Glasses, Hx Glaucoma Neurological History: Reports: Hx Headaches Denies: Hx Seizures, Hx Transient Ischemic Attacks (TIA) Psychiatric History: Denies: Hx Anxiety, Hx Depression, Hx Panic Disorder - Surgical History Surgery Procedure, Year, and Place: HYSTERECTOMY, GALLBLDDER, APPENDECTOMY Infectious Disease History: No Infectious Disease History: Denies: Hx Clostridium Difficile, Hx Hepatitis, Hx Human Immunodeficiency Virus (HIV), Hx of Known/Suspected MRSA, Hx Shingles, Hx Tuberculosis, Hx Known/ Suspected VRE, Hx Known/Suspected VRSA, History Other Infectious Disease, Traveled Outside the [place] in Last 30 Days - Family History Known Family History: Positive: Hypertension, Diabetes, Respiratory Disease - asthma, Other - FHx of asthma. No FHx of lupus or RA. Family History: No FHx of CVA. NO FHX of Cardaic disorders. No FHx of athritis. No FHx of RA. NO FHx of osteoporosis. no FHx of breast CA. no FHx of CA - Social History Alcohol Use: Rare Substance Use Type: Reports: None Hx Tobacco Use: Yes Smoking Status (MU): Heavy Every Day Tobacco Smoker Type: Cigarettes Amount Used/How Often: 1/2-1 PPD Length of Time of Smoking/Using Tobacco: since age 13 Have You Smoked in the Last Year: Yes Review of Systems Negative: Fever, Chills Eyes: Negative ENT: Negative Cardiovascular: Negative Respiratory: Negative Musculoskeletal: Other - left foot pain Neurological: Negative All Other Systems Reviewed And Are Negative: Yes Physical Exam - Summary Physical Exam Summary: VITAL SIGNS: Reviewed. GENERAL: Patient is a well-developed and nourished female who is lying comfortable in the stretcher. Patient is not in any acute respiratory distress. HEAD AND FACE: No signs of trauma. No ecchymosis, hematomas or skull depressions. No sinus tenderness. EYES: PERRLA, EOMI x 2, No injected conjunctiva, no nystagmus. EARS: Hearing grossly intact. Ear canals and tympanic membranes are within normal limits. MOUTH: Oropharynx within normal limits. NECK: Supple, trachea is midline, no adenopathy, no JVD, no carotid bruit, no c- spine tenderness, neck with full ROM. CHEST: Symmetric, no tenderness at palpation LUNGS: Clear to auscultation bilaterally. No wheezing or crackles. CVS: Regular rate and rhythm, S1 and S2 present, no murmurs or gallops appreciated. ABDOMEN: Soft, non-tender. No signs of distention. No rebound no guarding, and no masses palpated. Bowel sounds are normal. EXTREMITIES: FROM in all major joints, no edema, no cyanosis or clubbing. LLE: Full ROM of left foot. No ecchymosis. No hematoma. No erythema. NEURO: Alert and oriented x 3. No acute neurological deficits. Speech is normal and follows commands. SKIN: Dry and warm Triage Information Reviewed: Yes Vital Signs On Initial Exam: Initial Vitals Temp Pulse Resp BP Pulse Ox 97.3 F 91 16 134/87 98 10/02/17 08:34 10/02/17 08:34 10/02/17 08:34 10/02/17 08:34 10/02/17 08:34 Vital Signs Reviewed: Yes Diagnostics - Vital Signs Vital Signs Temp Pulse Resp BP Pulse Ox 10/02/17 08:34 97.3 F 91 16 134/87 98 - Laboratory Lab Statement: Any lab studies that have been ordered have been reviewed, and results considered in the medical decision making process. - Radiology Left ankle XR Xray Interpretation: No Acute Changes - IMPRESSION: No acute osseous injury to the left ankle or foot. If symptoms persist, recommend repeat imaging. Dr. Weber has reviewed this radiology report. Radiology Interpretation Completed By: Radiologist Left foot XR Xray Interpretation: No Acute Changes - IMPRESSION: No acute osseous injury to the left ankle or foot. If symptoms persist, recommend repeat imaging. Dr. Weber has reviewed this radiology report. Radiology Interpretation Completed By: Radiologist Lower Extremity Course/Dx - Course Assessment/Plan: This pt is a 41 y/o female presenting to [facility] c/o left foot pain x3 weeks. Pt reports she injured her foot 3 weeks ago after slipping on ice and falling. Denies head strike or LOC. Pt notes her foots is painful to touch. She is able to bear weight with this left foot. PSHx: hysterectomy, appendectomy, cholecystectomy. Pt is a current smoker (smokes 1 pack every 3 days). Left foot and left ankle XR show no acute osseous injury to the left ankle or foot. If symptoms persist, recommend repeat imaging. Since there is no significant abnormality, the pt will be discharged home with follow up from her PCP. Pt ambulated out of the ER. Pt is hemodynamically stable, alert and oriented x3. - Diagnoses Differential Diagnosis/HQI/PQRI: Positive: Bursitis, Contusion, Fracture (Closed ), Sprain, Strain Provider Diagnoses: Ankle pain Discharge - Discharge Plan Condition: Stable Disposition: HOME Patient Education Materials: Arthralgia (ED) Forms: *Work Release Referrals: Wanda Kendall MD [Primary Care Provider] - 3 Days Additional Instructions: Please follow up with your primary care provider. RETURN TO THE ED FOR ANY WORSENING SYMPTOMS. The documentation as recorded by the Jovany donahue Angela accurately reflects the service I personally performed and the decisions made by , Brian Weber MD.
== END | disposition home or self-care (01) ==
LOC: ED 08:32
DX: M25.572 Pain in left ankle and joints of left foot (principal); F17.210 Nicotine dependence, cigarettes, uncomplicated; W00.0XXA Fall on same level due to ice and snow, initial encounter; Y92.9 Unspecified place or not applicable
CPT/HCPCS: 96374; 96375; 99282

== ENCOUNTER 2017-12-17 14:26 | Emergency (ER) | payer OTHER ==
[2017-12-17 14:43] VITALS: BP 122/82
--- NOTE | 2017-12-17 15:00 | UC ---
Throat Pain/Nasal Dominguez HPI - HPI Summary HPI Summary: Pt presents with dry cough, sinus pain/pressure/congestion, and post nasal drip for the last 6 days. She has not been taking anything OTC. Denies fever, chills , SOB, chest pain, abdominal pain, n/v/d/c. - History of Current Complaint Chief Complaint: UCGeneralIllness Stated Complaint: COUGH, SORE THROAT WITH SINUS AND CHEST CONGESTION Time Seen by Provider: 12/17/17 15:00 Hx Obtained From: Patient Hx Last Menstrual Period: NA Onset/Duration: Gradual Onset Severity: Moderate Pain Intensity: 6 Pain Scale Used: 0-10 Numeric Cough: Nonproductive - Allergies/Home Medications Allergies/Adverse Reactions: Allergies Allergy/AdvReac Type Severity Reaction Status Date / Time Penicillins Allergy Intermediate vomitting Verified 12/17/17 14:45 bupropion Allergy Rash Verified 12/17/17 14:45 latex Allergy Rash Verified 12/17/17 14:45 Sulfa (Sulfonamide Allergy Fever Verified 12/17/17 14:45 Antibiotics) PMH/Surg Hx/FS Hx/Imm Hx - Additional Past Medical History Additional PMH: None Previously Healthy: Yes - Surgical History Surgical History: Yes Surgery Procedure, Year, and Place: HYSTERECTOMY, GALLBLDDER, APPENDECTOMY - Family History Known Family History: Positive: Hypertension, Diabetes, Respiratory Disease - asthma, Other - FHx of asthma. No FHx of lupus or RA. Family History: No FHx of CVA. NO FHX of Cardaic disorders. No FHx of athritis. No FHx of RA. NO FHx of osteoporosis. no FHx of breast CA. no FHx of CA - Social History Occupation: Employed Full-time Lives: With Family Alcohol Use: Occasionally Substance Use Type: None Smoking Status (MU): Light Every Day Tobacco Smoker Type: Cigarettes Amount Used/How Often: 1/2-1 PPD Length of Time of Smoking/Using Tobacco: since age 13 Have You Smoked in the Last Year: Yes Household Exposure Type: Cigarettes - Immunization History Most Recent Influenza Vaccination: unknown Most Recent Tetanus Shot: up to date Review of Systems Constitutional: Negative Skin: Negative Eyes: Negative ENT: Sore Throat, Nasal Discharge, Sinus Congestion, Sinus Pain/Tenderness Respiratory: Cough Cardiovascular: Negative Gastrointestinal: Negative Neurovascular: Negative Neurological: Negative Psychological: Negative All Other Systems Reviewed And Are Negative: Yes Physical Exam - Summary Physical Exam Summary: GENERAL: NAD. WDWN HEENT: NC/AT. Conjunctiva clear without inflammation or discharge. TMs intact , no bulging, erythema, or edema. Nasal mucosa mildly swollen and erythematous with yellow/clear discharge. TTP maxillary and frontal sinus. Posterior oropharynx without exudates, erythema, or tonsillar enlargement. Uvula midline. NECK: Supple without lymphadenopathy CHEST: CTAB. No r/r/w. No accessory muscle use. Breathing comfortably and in no distress. CV: RRR. Without m/r/g. Pulses intact. SKIN: No rashes, sores, lesions, or open wounds. NEURO: Alert. CN II-XII grossly intact. PSYCH: Age appropriate behavior. Triage Information Reviewed: Yes Vital Signs: Initial Vital Signs Temp 97.9 F 12/17/17 14:39 Pulse 93 12/17/17 14:39 Resp 18 12/17/17 14:39 BP 122/82 12/17/17 14:39 Pulse Ox 100 12/17/17 14:39 Throat Pain/Nasal Course/Dx - Course Course Of Treatment: POC strep negative. Sinusitis. Bronchitis. - Differential Dx/Diagnosis Provider Diagnoses: Sinusitis. Bronchitis Discharge - Sign-Out/Discharge Documenting (check all that apply): Discharge/Admit/Transfer - Discharge Plan Condition: Stable Disposition: HOME Prescriptions: Azithromycin TAB* [Zithromax TAB (Z-RAYSA) 250 mg #6 tabs] 2 tab PO .TODAY, THEN 1 DAILY #1 raysa Benzonatate CAP* [Tessalon 100 MG CAP*] 100 mg PO TID PRN #15 cap PRN Reason: Cough Codeine Phosphate/Guaifenesin [Guaifen-Codeine 100-10 mg/5 ml] 5 ml PO BEDTIME PRN #30 ml MDD 5mL PRN Reason: Cough Patient Education Materials: Sinusitis (ED), Acute Bronchitis (ED) Referrals: Wanda Kendall MD [Primary Care Provider] - Additional Instructions: If you develop a fever, shortness of breath, chest pain, new or worsening symptoms - please call your PCP or go to the ED. - Billing Disposition and Condition Condition: STABLE Disposition: HOME
== END 2017-12-17 15:29 | disposition home or self-care (01) ==
LOC: UCEAST 14:26
DX: J32.9 Chronic sinusitis, unspecified (principal); J40 Bronchitis, not specified as acute or chronic; Z88.0 Allergy status to penicillin; Z88.2 Allergy status to sulfonamides; Z91.040 Latex allergy status; F17.210 Nicotine dependence, cigarettes, uncomplicated
CPT/HCPCS: 87651; 99212; G0463

== ENCOUNTER 2018-03-04 16:47 | Emergency (ER) | payer OTHER ==
[2018-03-04] MEDS ORDERED: Diazepam TAB(*) 5 MG PO ONE (17:20)
--- NOTE | 2018-03-04 17:24 | ED ---
Back Pain - HPI Summary HPI Summary: Complains of low right-sided back pain upon waking up yesterday. Back pain described as constant, worse with walking. Denies trauma, incontinence, urinary retention, radiation of pain down bilateral legs, history of same pain. Denies fever, cough, sore throat, CP, SOB, N/V/D, abdominal pain, change in urine or BM. Medical history is none. History of hysterectomy. - History of Current Complaint Chief Complaint: EDBackInjuryPain Stated Complaint: BACK PAIN Time Seen by Provider: 03/04/18 17:09 Hx Obtained From: Patient, Family/Test Center Manager Hx Last Menstrual Period: NA Onset/Duration: Sudden Onset Onset/Duration: Started Days Ago Timing: Constant Back Pain Location: Is Discrete @ Severity Initially: Severe Severity Currently: Severe Pain Intensity: 10 Pain Scale Used: 0-10 Numeric Character: Sharp Aggravating Symptom(s): Movement, Walking Alleviating Symptom(s): Rest, Position Associated Signs And Symptoms: Positive: Negative - Allergies/Home Medications Allergies/Adverse Reactions: Allergies Allergy/AdvReac Type Severity Reaction Status Date / Time Penicillins Allergy Intermediate vomitting Verified 03/04/18 16:50 bupropion Allergy Rash Verified 03/04/18 16:50 latex Allergy Rash Verified 03/04/18 16:50 Sulfa (Sulfonamide Allergy Fever Verified 03/04/18 16:50 Antibiotics) PMH/Surg Hx/FS Hx/Imm Hx Endocrine/Hematology History: Denies: Hx Diabetes, Hx Thyroid Disease Cardiovascular History: Denies: Hx Congestive Heart Failure, Hx Hypertension, Hx Pacemaker/ICD, Hx Peripheral Vascular Disease Respiratory History: Reports: Hx Asthma - as needed meds Denies: Hx Chronic Obstructive Pulmonary Disease (COPD) GI History: Denies: Hx Ulcer, Other GI Disorders History: Denies: Hx Renal Disease, Other Problems/Disorders Musculoskeletal History: Denies: Hx Arthritis, Hx Osteoporosis Comment Only: Other Musculoskeletal History - GANGLION CYST RIGHT WRIST Sensory History: Denies: Hx Cataracts, Hx Contacts or Glasses, Hx Glaucoma Opthamlomology History: Denies: Hx Cataracts, Hx Contacts or Glasses, Hx Glaucoma Neurological History: Reports: Hx Headaches Denies: Hx Seizures, Hx Transient Ischemic Attacks (TIA) Psychiatric History: Denies: Hx Anxiety, Hx Depression, Hx Panic Disorder - Surgical History Surgery Procedure, Year, and Place: HYSTERECTOMY, GALLBLDDER, APPENDECTOMY Infectious Disease History: No Infectious Disease History: Denies: Hx Clostridium Difficile, Hx Hepatitis, Hx Human Immunodeficiency Virus (HIV), Hx of Known/Suspected MRSA, Hx Shingles, Hx Tuberculosis, Hx Known/ Suspected VRE, Hx Known/Suspected VRSA, History Other Infectious Disease, Traveled Outside the [place] in Last 30 Days - Family History Known Family History: Positive: Hypertension, Diabetes, Respiratory Disease - asthma, Other - FHx of asthma. No FHx of lupus or RA. Family History: No FHx of CVA. NO FHX of Cardaic disorders. No FHx of athritis. No FHx of RA. NO FHx of osteoporosis. no FHx of breast CA. no FHx of CA - Social History Alcohol Use: Occasionally Substance Use Type: Reports: None Hx Tobacco Use: Yes Smoking Status (MU): Light Every Day Tobacco Smoker Type: Cigarettes Amount Used/How Often: 1/2-1 PPD Length of Time of Smoking/Using Tobacco: since age 13 Have You Smoked in the Last Year: Yes Review of Systems Constitutional: Negative Eyes: Negative ENT: Negative Cardiovascular: Negative Respiratory: Negative Gastrointestinal: Negative Genitourinary: Negative Musculoskeletal: Other Skin: Negative Neurological: Negative Psychological: Normal All Other Systems Reviewed And Are Negative: Yes Physical Exam - Summary Physical Exam Summary: Tenderness to palpation along paraspinal muscles of L-spine on right side. No signs of ecchymosis, erythema, mass, deformity, swelling noted. PMS intact distally in bilateral lower extremities. Patient able to flex and extend bilateral lower extremities. Triage Information Reviewed: Yes Vital Signs On Initial Exam: Initial Vitals Temp Pulse Resp BP Pulse Ox 98.9 F 84 18 122/84 98 03/04/18 16:48 03/04/18 16:48 03/04/18 16:48 03/04/18 16:48 03/04/18 16:48 Vital Signs Reviewed: Yes Appearance: Positive: Well-Appearing Skin: Positive: Warm Head/Face: Positive: Normal Head/Face Inspection Eyes: Positive: Normal Neck: Positive: Supple Respiratory/Lung Sounds: Positive: Clear to Auscultation Cardiovascular: Positive: Normal Abdomen Description: Positive: Nontender Musculoskeletal: Positive: Normal Neurological: Positive: Normal Psychiatric: Positive: Normal AVPU Assessment: Alert - Miguel A Coma Scale Best Eye Response: 4 - Spontaneous Best Motor Response: 6 - Obeys Commands Best Verbal Response: 5 - Oriented Coma Scale Total: 15 Diagnostics - Vital Signs Vital Signs Temp Pulse Resp BP Pulse Ox 03/04/18 16:48 98.9 F 84 18 122/84 98 - Laboratory Lab Statement: Any lab studies that have been ordered have been reviewed, and results considered in the medical decision making process. Re-Evaluation - Re-Evaluation 1 Re-Evaluation Time: 19:10 Comment: Patient states back pain symptoms do not improve with Valium 5 mg. Back Pain Course/Dx - Course Course Of Treatment: Complains of low right-sided back pain upon waking up yesterday. Back pain described as constant, worse with walking. Denies trauma, incontinence, urinary retention, radiation of pain down bilateral legs, history of same pain. Denies fever, cough, sore throat, CP, SOB, N/V/D, abdominal pain , change in urine or BM. Medical history is none. History of hysterectomy. PE : Tenderness to palpation along paraspinal muscles of L-spine on right side. No signs of ecchymosis, erythema, mass, deformity, swelling noted. PMS intact distally in bilateral lower extremities. Patient able to flex and extend bilateral lower extremities. Pain did not improve with IM 5 mg by mouth. One hydrocodone hydrocodone 5 mg here in the ED. Prescription for same 4 tablets. [facility] reference #[id number] - Diagnoses Provider Diagnoses: Acute back pain Discharge - Sign-Out/Discharge Documenting (check all that apply): Patient Departure - Discharge Plan Condition: Stable Disposition: HOME Patient Education Materials: Acute Low Back Pain (ED) Referrals: Wanda Kendall MD [Primary Care Provider] - Additional Instructions: Follow-up with primary care. Return to the ED for any new or worsening symptoms - Billing Disposition and Condition Condition: STABLE Disposition: Home
[2018-03-04] MEDS ORDERED: HYDROcodone/ACETAMIN 5-325 MG* 1 TAB PO ONE (19:10)
[2018-03-04 19:43] VITALS: BP 142/96
== END 2018-03-04 19:47 | disposition home or self-care (01) ==
LOC: ED 16:47
DX: M54.5 Low back pain (principal); F17.210 Nicotine dependence, cigarettes, uncomplicated; Z90.710 Acquired absence of both cervix and uterus; Z88.3 Allergy status to other anti-infective agents; Z88.8 Allergy status to other drugs, medicaments and biological substances; Z88.2 Allergy status to sulfonamides
CPT/HCPCS: 99282; A9270-GY

== ENCOUNTER 2018-04-01 13:33 | Emergency (ER) | payer OTHER ==
[2018-04-01 13:40] VITALS: BP 110/73
--- OUTSIDE RECORDS SUMMARY | 2018-04-01 13:40 | XMS REPORT ---
:1975 External Reference #:[id number] Author Organization [facility] Address [address] [place] [address] Phone [phone] Care Team Providers Name Role Phone Wanda Kendall MD Primary Care Physician Unavailable Payers Type Date Identification Numbers Payment Provider Subscriber Commercial Expires: Policy Number: [id number] [employer] Emanuelher Sierrain 2017 Medicaid Group Name: [id number] [address] [address] PayID: [id number] [place] [address] Medigap Part B Effective: 2016 Policy Number: [id number] Medicaid Emanuel Vasiliy Expires: 2016 Group Name: 1 1 [address] PayID: [id number] [place] [address] Commercial Effective: Policy Number: [employer] Emanuel Vasiliy 2014 [id number] Medicaid Expires: 2016 PayID: [id number] [address] [address] [place] [address] Commercial Effective: Policy Number: [employer] Emanuel Vasiliy 2013 [id number] Medicaid Expires: 2014 PayID: [id number] [address] [address] [place] [address] Commercial Policy Number: [id number] Cristopher Flores PayID: [id number] [address] [place] [address] Problems Date Description Provider Status Onset: 05/22/2014 Tobacco user Wanda Kendall M.D. Active Onset: 09/28/2014 Asthma Wanda Kendall M.D. Active Note: intermittent sx Onset: 05/22/2014 Carpal tunnel syndrome Wanda Kendall M.D. 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 Ibuprofen 03/06/ Active Tablets 600mg 45tab three M54.5 2017 s times a Pachikara, day M.D. Baclofen 03/06/ Active Tablets 10mg 14tab take 1 M54.5 2017 s tablets by Pachikara, mouth M.D. twice a day Tramadol HCL 03/06/ Active Tablets 50mg 45tab three M54.5 2017 s times a Pachikara, day as M.D. needed Tylenol 00/ Active Tablets 325mg as needed Unknown 0000 Ibuprofen / Active Capsules 200mg 3 tabs S33.5xxA Unknown 0000 three times a day as needed Wellbutrin SR 12/27/ Hx Tablets 150mg 30tab 1 tablet Z72.0 Max 2017 - ER 12HR s by wilmer Oconnell NP 12/26/ in the 2016 morning x 3 days then 1 tab bid; start 1-2 wks before your quit date Keflex 12/20/ Hx Capsules 500mg 42cap 1 tab by L02.426 Max 2016 - s wilmer Oconnell NP 12/26/ three 2017 times a day for 10-14 days. Azithromycin 12/14/ Hx Tablets 250mg 6tabs 2 tabs by J06.9 Max 2017 - mouth on Vietnamese, [employer] 12/19/ day 1; 1 2017 tab by mouth every day on days 2-5 Proair HFA 12/14/ Hx Aerosol 108(90Bas 1unit 1 puff J06.9 Max 2016 - e) s every 4 Vietnamese, [employer] 12/28/ mcg/Act hours as 2017 needed for chest tightness or wheezing Ibuprofen 04/14/ Hx Tablets 800mg 30tab by mouth S33.5xxA Wanda 2015 - three Kendall, 10/10/ times a M.D. 2016 day as needed Cyclobenzaprine 04/14/ Hx Tablets 10mg 30tab one by S33.5xxA Wanda HCL 2015 - mouth 2 Kendall, 10/10/ times a M.D. 2016 day as needed spasm Acetaminophen-Cod 04/14/ Hx Tablets 300-30mg 10tab 1 tab S33.5xxA Wanda eine #3 2015 - every 12 h Kendall, 10/10/ as needed M.D. 2016 Cyclobenzaprine 06/25/ Hx Tablets 10mg 30tab one by S33.6xxA Wanda HCL 2014 - mouth 3 Kendall, 02/15/ times a M.D. 2015 day as needed for spasms Ibuprofen 06/25/ Hx Tablets 600mg 42tab 1 tab by S33.6xxA Wanda 2014 - mouth Kendall, 04/14/ three M.D. 2015 times a day as needed Cymbalta 05/28/ Hx Caps DR 20mg 30cap 1 cap po F33.1 Max 2014 - Part s daily Vietnamese, [employer] 2015 Naproxen 04/10/ Hx Tablets 500mg 30tab 1 tablet 724.5 Darnell 2014 - s by mouth Evans, 06/25/ twice a M.D. 2014 day with foods as needed pain Cyclobenzaprine 04/10/ Hx Tablets 10mg 45tab one by 724.5 Darnell HCL 2014 - s mouth Evans, 06/25/ three M.D. 2014 times a day as needed spasm Proair HFA 06/19/ Hx Aerosol 108(90Bas 1unit 1 puff 786.07 Max 2013 - e) s every 4 KEITH Oconnell 04/09/ mcg/Act hours as 2014 needed for chest tightness or wheezing Amoxicillin 06/19/ Hx Tablets 875mg 14tab take one 462 Max 2013 - tablet by KEITH Oconnell 04/09/ mouth 2014 twice a day x's 7 days Off Work 06/19/ Hx Max 2013 Tahir Oconnell NP 2014 Hydrocodone-Aceta 05/22/ Hx Tablets 5-325mg 30tab 1-2 by Mirna myers 2013 mouth bid Grubbs, 04/10/ hour as M.DJose 2014 needed pain Ibuprofen 05/08/ Hx Tablets 600mg 120ta 1 tab po Gina 2012 - q6 prn Maeve-Hernandez 05/28/ pain Take Rupert lombardi 2013 With Food, Stop If GI Upset Hydrocodone-Aceta / Hx Tablets 5-325mg 30tab 1-2 twice Unknown minophen 0000 - s a day as 2013 Naproxen / Hx Tablets 500mg 60tab 1 tablet Unknown 0000 - s with food 04/09/ by mouth 2014 twice a day Albuterol Inhaler / Hx q4-6 prn Unknown - 2014 Multi Vitamin / Hx Tablets Unknown Daily - 2014 Black Cohosh / Hx Capsules 160mg tid Unknown - 2014 Medications Administered in Office Medication Date Status Form Strength Qnty SIG Indications Ordering Provider Celestone 3 mg Administered Injection Conrado and 3mg 017 MD Arias Celestone 3 mg Administered Injection Gina and 3mg 013 Raúl meza M.D. Celestone 3 mg Administered Injection Gina and 3mg 012 Raúl meza M.D. Celestone 3 mg Administered Injection Gina and 3mg 012 Raúl mzea M.D. Immunizations CPT Code Status Date Vaccine Lot # [id number] Given 06/25/2015 Influenza Virus Vaccine, Quadrivalent, Split, [id number] Preservative Free 20809 Given 05/28/2014 Influenza Virus Vaccine, Quadrivalent, Split, [id number] Preservative Free 09156 Given 12/27/2010 Tdap - Tetanus/Diptheria/Acellular Pertussis 96538 Given 12/22/1994 Tdap - Tetanus/Diptheria/Acellular Pertussis 31365 Given 01/19/1990 Measles Mumps And Rubella MMR Vital Signs Date Vital Result Comment 03/13/2018 Height 64 inches 5'4" Weight 176.00 lb Heart Rate 82 /min BP Systolic Sitting 110 mmHg BP Diastolic Sitting 72 mmHg Body Temperature 97.0 F Pain Level 4 back, .ower O2 % BldC Oximetry 98 % BMI (Body Mass Index) 30.2 kg/m2 03/06/2018 Height 64 inches 5'4" Weight 173.50 lb Heart Rate 85 /min BP Systolic Sitting 120 mmHg BP Diastolic Sitting 84 mmHg Body Temperature 97.2 F O2 % BldC Oximetry 97 % BMI (Body Mass Index) 29.8 kg/m2 12/27/2016 Height 64 inches 5'4" Weight 178.00 lb Heart Rate 79 /min BP Systolic 122 mmHg BP Diastolic 88 mmHg Body Temperature 97.1 F Pain Level 6 BMI (Body Mass Index) 30.6 kg/m2 12/27/2016 Weight 178.00 lb Heart Rate 89 /min BP Systolic Sitting 136 mmHg BP Diastolic Sitting 80 mmHg Body Temperature 97.9 F O2 % BldC Oximetry 98 % 12/20/2016 Weight 176.38 lb Heart Rate 73 /min BP Systolic Sitting 116 mmHg BP Diastolic Sitting 76 mmHg Body Temperature 97.3 F O2 % BldC Oximetry 99 % 12/14/2016 Weight 178.00 lb Heart Rate 94 /min BP Systolic Sitting 118 mmHg BP Diastolic Sitting 88 mmHg Body Temperature 97.7 F O2 % BldC Oximetry 97 % 11/28/2016 Weight 177.50 lb Heart Rate 82 /min BP Systolic 118 mmHg BP Diastolic 80 mmHg Body Temperature 97.0 F O2 % BldC Oximetry 98 % 10/10/2016 Weight 175.38 lb Heart Rate 94 /min BP Systolic Sitting 110 mmHg BP Diastolic Sitting 72 mmHg Body Temperature 97.9 F O2 % BldC Oximetry 98 % 04/14/2016 Weight 169.00 lb with shoes Heart Rate 89 /min BP Systolic Sitting 110 mmHg BP Diastolic Sitting 74 mmHg Body Temperature 96.9 F O2 % BldC Oximetry 98 % 02/25/2016 Weight 162.00 lb Heart Rate 95 /min BP Systolic Sitting 118 mmHg BP Diastolic Sitting 74 mmHg Body Temperature 98.3 F O2 % BldC Oximetry 97 % 02/16/2016 Weight 161.00 lb Heart Rate 89 /min BP Systolic Sitting 132 mmHg BP Diastolic Sitting 82 mmHg O2 % BldC Oximetry 98 % 06/25/2015 Height 63.5 inches 5'3.50" Weight 164.00 lb Heart Rate 80 /min BP Systolic Sitting 110 mmHg BP Diastolic Sitting 60 mmHg Respiratory Rate 15 /min Body Temperature 98.9 F O2 % BldC Oximetry 98 % BMI (Body Mass Index) 28.6 kg/m2 05/28/2015 Height 63.5 inches 5'3.50" Weight 166.12 lb Heart Rate 95 /min BP Systolic Sitting 116 mmHg BP Diastolic Sitting 68 mmHg Body Temperature 97.9 F O2 % BldC Oximetry 98 % BMI (Body Mass Index) 29.0 kg/m2 04/10/2015 Height 64 inches 5'4" Weight 164.25 lb Heart Rate 78 /min BP Systolic Sitting 112 mmHg BP Diastolic Sitting 74 mmHg Body Temperature 97.2 F O2 % BldC Oximetry 98 % BMI (Body Mass Index) 28.2 kg/m2 06/19/2014 Weight 163.50 lb Heart Rate 74 /min BP Systolic Sitting 115 mmHg BP Diastolic Sitting 85 mmHg Body Temperature 97.6 F O2 % BldC Oximetry 98 % 05/28/2014 Height 63.5 inches 5'3.50" Weight 166.25 lb Heart Rate 79 /min BP Systolic Sitting 118 mmHg BP Diastolic Sitting 66 mmHg Body Temperature 97.3 F O2 % BldC Oximetry 98 % BMI (Body Mass Index) 29.0 kg/m2 05/22/2014 Height 64 inches 5'4" Heart Rate 80 /min BP Systolic 124 mmHg BP Diastolic 80 mmHg 11/18/2010 Height 64 inches 5'4" Weight 174.00 lb Heart Rate 85 /min BP Systolic 132 mmHg BP Diastolic 85 mmHg BMI (Body Mass Index) 29.9 kg/m2 Results Test Date Test Result H/L Range Note Laboratory test 12/17/2017 Rapid Strep Negative Negative 1 finding Molecular CBC Auto Diff 02/06/2017 White Blood Count 13.5 10^3/uL High 3.5-10.8 Red Blood Count 4.73 10^6/uL 4.0-5.4 Hemoglobin 14.9 g/dL 12.0-16.0 Hematocrit 44 % 35-47 Mean Corpuscular Volume 93 fL 80-97 Mean Corpuscular Hemoglobin 31 pg 27-31 Mean Corpuscular HGB Conc 34 g/dL 31-36 Red Cell Distribution Width 13 % 10.5-15 Platelet Count 246 10^3/uL 150-450 Mean Platelet Volume 9 um3 7.4-10.4 Abs Neutrophils 8.9 10^3/uL High 1.5-7.7 Abs Lymphocytes 3.6 10^3/uL 1.0-4.8 Abs Monocytes 0.8 10^3/uL 0-0.8 Abs Eosinophils 0.1 10^3/uL 0-0.6 Abs Basophils 0.1 10^3/uL 0-0.2 Abs Nucleated RBC 0.01 10^3/uL Granulocyte % 66.5 % 38-83 Lymphocyte % 26.4 % 25-47 Monocyte % 5.6 % 1-9 Eosinophil % 0.8 % 0-6 Basophil % 0.7 % 0-2 Nucleated Red Blood Cells % 0 Comp Metabolic Panel 02/06/2017 Sodium 132 mmol/L Low 133-145 Potassium 3.8 mmol/L 3.5-5.0 Chloride 105 mmol/L 101-111 Co2 Carbon Dioxide 24 mmol/L 22-32 Anion Gap 3 mmol/L 2-11 Glucose 125 mg/dL High 70-100 Blood Urea Nitrogen 10 mg/dL 6-24 Creatinine 0.69 mg/dL 0.51-0.95 BUN/Creatinine Ratio 14.5 8-20 Calcium 9.1 mg/dL 8.6-10.3 Total Protein 7.1 g/dL 6.4-8.9 Albumin 4.1 g/dL 3.2-5.2 Globulin 3.0 g/dL 2-4 Albumin/Globulin Ratio 1.4 1-3 Total Bilirubin 1.00 mg/dL 0.2-1.0 Alkaline Phosphatase 55 U/L 34-104 Alt 20 U/L 7-52 Ast 19 U/L 13-39 Egfr Non- 94.7 >60 Egfr 121.8 >60 2 Laboratory test 02/06/2017 D Dimer Quantitative < 200 ng/mL Less Than 230 3 finding Laboratory test 12/27/2016 C Reactive Protein 6.48 mg/L High < 5.00 4 finding Erythrocyte Sed Rate 15 mm/Hr High 0-14 Rheumatoid Factor <15 IU/mL <15 5 Laboratory test 12/24/2016 Glucose 87 mg/dL 70-100 6 finding Laboratory test 07/19/2016 Rapid Strep A SEE RESULT BELOW 7 finding Laboratory test 07/19/2016 Rapid Strep Negative Negative 8 finding Molecular Laboratory test 06/02/2015 TSH (Thyroid Stim 0.50 ?IU/mL 0.34-5.60 finding Horm) FSH And LH 06/02/2015 FSH (Follicle Stim 7.1 mIU/mL 9 Hormone) LH (Lutenizing Hormone) 8.9 ?IU/mL 10 Comp Metabolic Panel 06/04/2014 Sodium 136 mmol/L 133-145 11 Potassium 4.6 mmol/L 3.7-5.6 11 Chloride 106 mmol/L 101-111 11 Co2 Carbon Dioxide 25 mmol/L 22-32 11 Anion Gap 5 mmol/L 2-11 11 Glucose 81 mg/dL 70-100 11 Blood Urea Nitrogen 13 mg/dL 6-24 11 Creatinine 0.75 mg/dL 0.51-0.95 11 BUN/Creatinine Ratio 17.3 8-20 11 Calcium 9.1 mg/dL 8.6-10.3 11 Total Protein 6.9 g/dL 6.4-8.9 11 Albumin 4.1 g/dL 3.2-5.2 11 Globulin 2.8 g/dL 2-4 11 Albumin/Globulin Ratio 1.5 1-3 11 Total Bilirubin 0.80 mg/dL 0.2-1.0 11 Alkaline Phosphatase 49 U/L 34-104 11 Alt 10 U/L 7-52 11 Ast 14 U/L 13-39 11 Egfr Non- 87.4 >60 11 Egfr 112.4 >60 11, 12 Lipid Profile (Trig/Chol/HDL) 06/04/2014 Triglycerides 101 mg/dL 11, 13 Cholesterol 144 mg/dL 11, 14 HDL Cholesterol 37.0 mg/dL 11, 15 LDL Cholesterol 87 mg/dL 11, 16 CBC Auto Diff 06/04/2014 White Blood Count 8.4 10^3/uL 4.8-10.8 11 Red Blood Count 4.50 10^6/uL 4.0-5.4 11 Hemoglobin 14.1 g/dL 12.0-16.0 11 Hematocrit 41 % 35-47 11 Mean Corpuscular Volume 91 fL 80-97 11 Mean Corpuscular Hemoglobin 31 pg 27-31 11 Mean Corpuscular HGB Conc 35 g/dL 31-36 11 Red Cell Distribution Width 13 % 10.5-15 11 Platelet Count 262 10^3/uL 150-450 11 Mean Platelet Volume 9 um3 7.4-10.4 11 Abs Neutrophils 4.8 10^3/uL 1.5-7.7 11 Abs Lymphocytes 2.7 10^3/uL 1.0-4.8 11 Abs Monocytes 0.6 10^3/uL 0-0.8 11 Abs Eosinophils 0.1 10^3/uL 0-0.6 11 Abs Basophils 0.1 10^3/uL 0-0.2 11 Abs Nucleated RBC 0 10^3/uL 11 Granulocyte % 57.6 % 38-83 11 Lymphocyte % 32.8 % 25-47 11 Monocyte % 7.6 % 1-9 11 Eosinophil % 1.2 % 0-6 11 Basophil % 0.8 % 0-2 11 Nucleated Red Blood Cells % 0 11 1 Environmental Health Inspector: [id number] 2 Because ethnic data is not always readily available, this report includes an eGFR for both -Americans and non- Americans. The National Kidney Disease Education Program (NKDEP) does not endorse the use of the MDRD equation for patients that are not between the ages of 18 and 70, are , have extremes of body size, muscle mass, or nutritional status, or are non- or non-. According to the National Kidney Foundation, irrespective of diagnosis, the stage of the disease is based on the level of kidney function: Stage Description GFR(mL/min/1.73 m(2)) 1 Kidney damage with normal or decreased GFR 90 2 Kidney damage with mild decrease in GFR 60-89 3 Moderate decrease in GFR 30-59 4 Severe decrease in GFR 15-29 5 Kidney failure <15 (or dialysis) 3 Please note: The following may produce a false positive D Dimer test: - Rheumatoid factor greater than 60 IU/ml - Plasma hemoglobin greater than 0.05 gm/dl - Bilirubin greater than 50 mg/dl - Lipids greater than 1000 mg/dl - FDP greater than 20 ug/ml 4 Acute inflammation: >10.00 5 Test Performed by: [address] [address] 6 FASTING 8 HOUR 7 SEE RESULT BELOW Name: TIEN FLORESHER : [address]: Jesse Plasencia MD Acct: [id number] Unit: [id number] AGE: 40 Location: ED Re07/19/16 SEX: F Status: REG ER SPEC: [id number] COLLINS: 07/19/16 [facility] DR: Jesse Plasencia MD REQ: [id number] RECD: 07/19/16 STATUS: MARJORIE DURON DR: [facility] Wanda Kendall MD _ SOURCE: THROAT SPDESC: ORDERED: Strep A Request Procedure Result Reported Site Rapid Strep A Request Final 07/19/16- 1208 ML Specimen received for Rapid Strep A Molecular testing * ML - MAIN LAB ([facility]) . END OF REPORT * ML=Testing performed at Main Lab DEPARTMENT OF PATHOLOGY, [address] [place] [address] Floyd Bailey M.D. Director [facility] # [id number] Environmental Health Inspector: [id number] KARLA GOMEZ 9 Normally menstruating females - Follicular phase 3 - 9 - Mid-cycle peak 4 - 23 - Luteal phase 1 - 6 Postmenopausal females 16 - 114 10 Normally menstruating females - Follicular Phase 1 - 18 - Mid-Cycle Peak 24 - 105 - Luteal Phase 0.6 - 20 Postmenopausal females 15 - 62 11 FASTING 12 HOUR 12 Because ethnic data is not always readily available, this report includes an eGFR for both -Americans and non- Americans. The National Kidney Disease Education Program (NKDEP) does not endorse the use of the MDRD equation for patients that are not between the ages of 18 and 70, are , have extremes of body size, muscle mass, or nutritional status, or are non- or non-. According to the National Kidney Foundation, irrespective of diagnosis, the stage of the disease is based on the level of kidney function: Stage Description GFR(mL/min/1.73 m(2)) 1 Kidney damage with normal or decreased GFR 90 2 Kidney damage with mild decrease in GFR 60-89 3 Moderate decrease in GFR 30-59 4 Severe decrease in GFR 15-29 5 Kidney failure <15 (or dialysis) 13 Desirable <150 Borderline high 150-199 High 200-499 Very High >500 14 Desirable <200 Borderline high 200-239 High >239 15 Low <40 Desirable: 40-60 High: >60 16 Desirable <100 Near Optimal 100-129 Borderline high 130-159 High 160-189 Very High >189 Procedures Date CPT Code Description Status 12/27/2016 Inject Tendon Sheath Or Ligament Aponeurosis Eg Plantar Completed Fascia 12/21/2016 79827 Pulmonary Function><Bronchodil Completed 02/19/2016 Mammogram Completed 06/21/2013 Inject/Drain Joint/Bursa Intermediate W/O US Completed 01/30/2012 Aspiration &/Or Inj Of Ganglion Cyst(S) Any Location Completed Encounters Type Date Location Provider CPT E/M Dx Office Visit 03/06/2018 [facility] Giuseppe Aquino, [address] M54.5 2:40p - [address] M.D. Office Visit 12/27/2016 [facility] [address] M65.351 2:15p Of [facility] Office Visit 12/27/2016 [facility] [place] [address] Z72.0 1:00p - [address] Office Visit 12/20/2016 [facility] [place] [address] L02.426 11:00a - [address] Office Visit 12/14/2016 [facility] [place] [address] J06.9 1:00p - [address] Z72.0 Office Visit 11/28/2016 10:20a [facility] Nannette Martinez, N.P. 29310 O92.6 - Audra R10.31 Z90.710 Office Visit 10/10/2016 9:20a [facility] [place] [address] S83.401A - [address] S83.91xA Office Visit 04/14/2016 1:40p [facility] Wanda Kendall [address]58[address] S33.5xxA Tahir Ramírez M.D. Office Visit 02/25/2016 1:20p [facility] Ngoc Gaspar 48138 N60.01 - Audra Emery Z82.49 Z83.49 N95.1 Office Visit 02/16/2016 9:40a [facility] Ngoc Gaspar 84697 N63 Tahir Zhu M.D. Office Visit 06/25/2015 8:50a [facility] Wanda Kendall [address]508 S33.6xxA Tahir Zhu M.D. Z13.1 Z23 Office Visit 05/28/2015 11:00a [facility] Max Oconnell, KEITH [address] F33.1 - [address] Office Visit 04/10/2015 11:40a [facility] Darnell Evans M.D. 59345 724.5 - [address] 724.2 Office Visit 06/19/2014 3:00p [facility] [place] [address] [address] 786.07 Office Visit 05/28/2014 2:30p [facility] Wanda Kendall M.D. 49485 305.1 - [place] V77.1 V77.91 V72.62 v04.81 Office Visit 05/22/2014 11:15a [facility] Mirna Grubbs 132[address] 354.0 Of [place] Emery Office Visit 06/21/2013 8:00a [facility] Services Gina 89125 719.43 Of [place] Richardson M.D. 727.43 Office Visit 05/08/2013 8:45a [facility] Gina Richardson 30017 727.05 Of [place] Emery Office Visit 03/21/2012 11:15a [facility] Gina Richardson 39282 719.43 Of [place] Emery Office Visit 02/29/2012 10:45a [facility] Gina Richardson 47889 719.43 Of [place] Emery Office Visit 01/30/2012 10:30a [facility] Gina Richardson 54943 719.43 Of [place] Emery 727.42 Office Visit 11/18/2010 4:00p [facility] Of Kelechi Jose 34942 728.89 Indigo Emery Plan of Care Future Appointment(s):04/16/2018 4:00 pm - Giuseppe Aquino M.D. at [facility] - [address]/13/2018 - Giuseppe Aquino M.D.M54.5 Low back painComments:Continue tramadol as needed. You can go back to work.F17.210 Nicotine dependence, cigarettes, uncomplicatedNew Medication:Chantix Starting Month Robert 0.5 mg X 11 & 1 mg X 42Comments:manager intermediate adverse effects of smoking are blockage of blood vessels ultimately can lead to amputations. When it affects heart blood vessels it can cause heart attack even a an early age. It can cause progressive lung damage and cancer of lung. Overall it increases the risk of all cancers .It increases risk of many other diseases like osteoporosis as you get older.Different options to quit smoking areChantix, welbutrin which is an antidepressant, nicotine patch or gums .Wants to try chantix.Main side effect of Chantix is possible development of depression. At any time of development of symptoms of depression or suicidal ideations immediately should call me.Spent 3-4 min. for counselingFollow up:1 month
[2018-04-01] MEDS ORDERED: Ondansetron ODT TAB* 4 MG PO ONE (13:51)
--- NOTE | 2018-04-01 13:59 | UC ---
UC General HPI - HPI Summary HPI Summary: patient has had 6 days of nausea, she recently increased her dose of CHantix 8 days ago to 1 mg. since then has stomach pain with meals, nausea but no vomiting - History of Current Complaint Chief Complaint: UCGI Stated Complaint: NASEOUS, STOMACH PAIN Time Seen by Provider: 04/01/18 13:43 Hx Obtained From: Patient Hx Last Menstrual Period: NA Onset/Duration: Sudden Onset, Lasting Days Onset Severity: Moderate Current Severity: Moderate Pain Intensity: 6 Associated Signs & Symptoms: Positive: Nausea - Allergy/Home Medications Allergies/Adverse Reactions: Allergies Allergy/AdvReac Type Severity Reaction Status Date / Time Penicillins Allergy Intermediate vomitting Verified 04/01/18 13:41 bupropion Allergy Rash Verified 04/01/18 13:41 latex Allergy Rash Verified 04/01/18 13:41 Sulfa (Sulfonamide Allergy Fever Verified 04/01/18 13:41 Antibiotics) Home Medications: Home Medications Varenicline (NF) [Chantix 1 MG TAB (NF)] 1 mg PO 04/01/18 [History] PMH/Surg Hx/FS Hx/Imm Hx Previously Healthy: Yes - Surgical History Surgical History: Yes Surgery Procedure, Year, and Place: HYSTERECTOMY, GALLBLDDER, APPENDECTOMY - Family History Known Family History: Positive: Hypertension, Diabetes, Respiratory Disease - asthma, Other - FHx of asthma. No FHx of lupus or RA. Family History: No FHx of CVA. NO FHX of Cardaic disorders. No FHx of athritis. No FHx of RA. NO FHx of osteoporosis. no FHx of breast CA. no FHx of CA - Social History Alcohol Use: Rare Substance Use Type: None Smoking Status (MU): Former Smoker Type: Cigarettes Amount Used/How Often: 1/2-1 PPD Length of Time of Smoking/Using Tobacco: since age 13 Have You Smoked in the Last Year: Yes Household Exposure Type: Cigarettes - Immunization History Most Recent Influenza Vaccination: unknown Most Recent Tetanus Shot: up to date Review of Systems Constitutional: Negative Skin: Negative Eyes: Negative ENT: Negative Respiratory: Negative Cardiovascular: Negative Gastrointestinal: Nausea Genitourinary: Negative Motor: Negative Neurovascular: Negative Musculoskeletal: Negative Neurological: Negative Psychological: Negative Is Patient Immunocompromised?: No All Other Systems Reviewed And Are Negative: Yes Physical Exam Triage Information Reviewed: Yes Appearance: Well-Nourished, Ill-Appearing, Pain Distress Vital Signs: Initial Vital Signs Temp 98.1 F 04/01/18 13:37 Pulse 78 04/01/18 13:37 Resp 18 04/01/18 13:37 BP 110/73 04/01/18 13:37 Pulse Ox 100 04/01/18 13:37 Vital Signs Reviewed: Yes Eye Exam: Normal ENT Exam: Normal Dental Exam: Normal Neck exam: Normal Neck: Positive: Supple, Nontender, No Lymphadenopathy Respiratory Exam: Normal Respiratory: Positive: Chest non-tender, Lungs clear, Normal breath sounds Cardiovascular Exam: Normal Cardiovascular: Positive: RRR, No Murmur, Pulses Normal Abdominal Exam: Normal Abdomen Description: Positive: Nontender - epigastric tenderness on palpation, No Organomegaly, Soft, CVA Tenderness (R) - neg, CVA Tenderness (L) - neg Bowel Sounds: Positive: Present Musculoskeletal Exam: Normal Neurological Exam: Normal Psychological Exam: Normal Course/Dx - Course Course Of Treatment: hx obtained, exam performed ,meds reviewed, zoftan given, nasuea is the most reported side effect of chantix, recommend f/u with the prescribing physician tomorrow - Differential Dx - Multi-Symptom Provider Diagnoses: nausea. medication side effect Discharge - Sign-Out/Discharge Documenting (check all that apply): Patient Departure - Discharge Plan Condition: Stable Disposition: HOME Patient Education Materials: Acute Nausea and Vomiting (ED), Varenicline (By mouth) Referrals: Wanda Kendall MD [Primary Care Provider] - Additional Instructions: 1. take the zofran as prescribed. 2. Eat as tolerated, continue to stay hydrated 3. Follow up with your doctor to let him know about the nausea associated with taking chantix at the higher dose. - Billing Disposition and Condition Condition: STABLE Disposition: Home
== END 2018-04-01 14:40 | disposition home or self-care (01) ==
LOC: UCEAST 13:33
DX: R11.0 Nausea (principal); T44.995A Adverse effect of other drug primarily affecting the autonomic nervous system, initial encounter; Y92.9 Unspecified place or not applicable; Z88.0 Allergy status to penicillin; Z88.2 Allergy status to sulfonamides; Z88.8 Allergy status to other drugs, medicaments and biological substances; Z91.040 Latex allergy status; Z82.49 Family history of ischemic heart disease and other diseases of the circulatory system; Z83.3 Family history of diabetes mellitus; Z82.5 Family history of asthma and other chronic lower respiratory diseases; Z87.891 Personal history of nicotine dependence
CPT/HCPCS: 99212; A9270-GY; G0463

== ENCOUNTER 2019-07-26 20:32 | Emergency (ER) | payer OTHER ==
--- NOTE | 2019-07-26 23:42 | ED ---
Syncope/Near Syncope - HPI Summary HPI Summary: 43 y/o female with constant headache since 06/21/19 reports the emergency department after falling in the tub and striking the posterior aspect of her head at 1100 this date. Pt states that she is scheduled for MRI on Monday for her constant headache. She states her headache today is a 8 out of 10. She states she felt lightheaded which caused her fall. Pt denies LOC or amnesia. Pt denies chest pain, shortness of breath, abdominal pain, pain with urination, rash, changes in vision, difficult walking. Patient denies family history of polycystic kidney disease or subarachnoid hemorrhage. - History Of Current Complaint Chief Complaint: EDSyncope Time Seen by Provider: 07/26/19 23:41 Hx Obtained From: Patient Onset/Duration: Sudden Onset, Gradual Onset Timing: Constant Associated Head Trauma: Yes Aggravating Factor(s): Position Change Alleviating Factor(s): Rest Associated Signs And Symptoms: Headache - Allergies/Home Medications Allergies/Adverse Reactions: Allergies Allergy/AdvReac Type Severity Reaction Status Date / Time Penicillins Allergy Intermediate vomitting Verified 07/26/19 20:40 bupropion Allergy Rash Verified 07/26/19 20:40 latex Allergy Rash Verified 07/26/19 20:40 Sulfa (Sulfonamide Allergy Fever Verified 07/26/19 20:40 Antibiotics) PMH/Surg Hx/FS Hx/Imm Hx Endocrine/Hematology History: Denies: Hx Diabetes, Hx Thyroid Disease Cardiovascular History: Denies: Hx Congestive Heart Failure, Hx Hypertension, Hx Pacemaker/ICD, Hx Peripheral Vascular Disease Respiratory History: Reports: Hx Asthma - as needed meds Denies: Hx Chronic Obstructive Pulmonary Disease (COPD) GI History: Denies: Hx Ulcer, Other GI Disorders History: Denies: Hx Renal Disease, Other Problems/Disorders Musculoskeletal History: Denies: Hx Arthritis, Hx Osteoporosis Comment Only: Other Musculoskeletal History - GANGLION CYST RIGHT WRIST Sensory History: Denies: Hx Cataracts, Hx Contacts or Glasses, Hx Glaucoma Opthamlomology History: Denies: Hx Cataracts, Hx Contacts or Glasses, Hx Glaucoma Neurological History: Reports: Hx Headaches Denies: Hx Seizures, Hx Transient Ischemic Attacks (TIA) Psychiatric History: Denies: Hx Anxiety, Hx Depression, Hx Panic Disorder - Surgical History Surgery Procedure, Year, and Place: HYSTERECTOMY, GALLBLDDER, APPENDECTOMY - Immunization History Immunizations Up to Date: Yes Infectious Disease History: No Infectious Disease History: Denies: Hx Clostridium Difficile, Hx Hepatitis, Hx Human Immunodeficiency Virus (HIV), Hx of Known/Suspected MRSA, Hx Shingles, Hx Tuberculosis, Hx Known/ Suspected VRE, Hx Known/Suspected VRSA, History Other Infectious Disease, Traveled Outside the [place] in Last 30 Days - Family History Known Family History: Positive: Hypertension, Diabetes, Respiratory Disease - asthma, Other - FHx of asthma. No FHx of lupus or RA. Family History: No FHx of CVA. NO FHX of Cardaic disorders. No FHx of athritis. No FHx of RA. NO FHx of osteoporosis. no FHx of breast CA. no FHx of CA - Social History Alcohol Use: Rare Substance Use Type: Reports: None Hx Tobacco Use: Yes Smoking Status (MU): Current Every Day Smoker Type: Cigarettes Amount Used/How Often: 1/2-1 PPD Length of Time of Smoking/Using Tobacco: since age 13 Have You Smoked in the Last Year: Yes Review of Systems Constitutional: Negative Eyes: Negative ENT: Negative Cardiovascular: Negative Respiratory: Negative Gastrointestinal: Negative Genitourinary: Negative Musculoskeletal: Negative Skin: Negative Positive: Headache Psychological: Normal All Other Systems Reviewed And Are Negative: Yes Physical Exam Triage Information Reviewed: Yes Vital Signs On Initial Exam: Initial Vitals Temp Pulse Resp BP Pulse Ox 98.1 F 100 16 145/99 98 07/26/19 20:35 07/26/19 20:35 07/26/19 20:35 07/26/19 20:35 07/26/19 20:35 Vital Signs Reviewed: Yes Appearance: Positive: Well-Appearing, No Pain Distress, Well-Nourished Skin: Positive: Warm, Skin Color Reflects Adequate Perfusion Eyes: Positive: EOMI, LESLEY, Conjunctiva Clear ENT: Positive: Normal ENT inspection, Hearing grossly normal, TMs normal Respiratory/Lung Sounds: Positive: Clear to Auscultation, Breath Sounds Present Cardiovascular: Positive: RRR, S1, S2 Abdomen Description: Positive: Nontender, Soft Musculoskeletal: Positive: Strength/ROM Intact Neurological: Positive: Sensory/Motor Intact, Alert, Oriented to Person Place, Time, Normal Gait, Facial Symmetry, Speech Normal. Negative: Cerebellar Dysfunction, Ataxic Gait Psychiatric: Positive: Normal AVPU Assessment: Alert Procedures - Sedation Patient Received Moderate/Deep Sedation with Procedure: No Diagnostics - Vital Signs Vital Signs Temp Pulse Resp BP Pulse Ox 07/26/19 22:55 98.0 F 82 18 129/88 96 07/26/19 20:35 98.1 F 100 16 145/99 98 - Laboratory Lab Statement: Any lab studies that have been ordered have been reviewed, and results considered in the medical decision making process. Course/Dx Course Of Treatment: Patient was evaluated in the emergency department for headache and head trauma after a fall. Patient was examined her vitals are stable. No imaging was deemed necessary after her normal neurological examination. Patient was given magnesium, Reglan, Benadryl for her headache which she states is her chief complaint today. After being given these medications she endorsed that her headache was much better. Patient was told to follow up with her primary care provider for further evaluation and management of her headaches. Patient agreed to this plan. - Diagnoses Differential Diagnosis/HQI/PQRI: Positive: Other - Headache, cranial hemorrhage Provider Diagnoses: Headache Discharge ED - Sign-Out/Discharge Documenting (check all that apply): Patient Departure - Discharge Plan Condition: Stable Disposition: HOME Patient Education Materials: Acute Headache (ED) Referrals: Renay Sullivan NP [Primary Care Provider] - 3 Days Additional Instructions: You were seen in the emergency department today due to a headache and a fall. After physical exam it was determined that imaging of your brain were not needed to rule out possible pathology. Please follow-up with your primary care physician for further evaluation and management of your headache and to have your MRI done. Please continue with your primary care physician's instructions for treatment of your headache. Please return to the emergency department immediately if you develop any new or worsening symptoms. - Billing Disposition and Condition Condition: STABLE Disposition: Home
[2019-07-26] MEDS ORDERED: Metoclopramide IV* 5 MG/ML 2 ML VIAL IV SLOW PU ONE (23:58)
[2019-07-26] MEDS ORDERED: Magnesium Sulfate 2 GM IV* 2 GM/50 ML BAG IVPB ONE (23:59)
[2019-07-26] MEDS ORDERED: diPHENhydraMINE IV* 50 MG/ML 1 ml VIAL (BENADRYL) IV ONE (23:59)
[2019-07-27 01:58] VITALS: BP 131/90
== END 2019-07-27 02:00 | disposition home or self-care (01) ==
LOC: ED 20:32
DX: R51 Headache (principal); J45.909 Unspecified asthma, uncomplicated; Z88.0 Allergy status to penicillin; Z88.2 Allergy status to sulfonamides; Z88.8 Allergy status to other drugs, medicaments and biological substances; Z91.040 Latex allergy status; F17.210 Nicotine dependence, cigarettes, uncomplicated
CPT/HCPCS: 93005; 96374; 96375; 99282; J1200; J2765; J3475